=== PATIENT | female | born 1955 | race Caucasian/White ===

== ENCOUNTER → 2016-08-09 | Outpatient (CLI) | payer OTHER | LOC: RAD 15:30 | PROVIDERS: ATTEND Internal Medicine | DX: J44.9 Chronic obstructive pulmonary disease, unspecified (principal); R05 Cough | CPT/HCPCS: 71250 ==

== ENCOUNTER → 2017-01-11 | Outpatient (CLI) | payer OTHER ==
--- NOTE | 2017-01-11 15:37 | WOMENS IMAGING REPORT ---
EXAM DESCRIPTION: BILAT SCREENING MAMMO W/CAD COMPLETED DATE/TIME: 01/11/2017 10:12 am REASON FOR STUDY: ROUTINE SCREENING'; Z12.31 Z12.31 ENCNTR SCREEN MAMMOGRAM FOR MALIGNANT NEOPLASM OF JOSH COMPARISON: None. TECHNIQUE: Standard craniocaudal and mediolateral oblique views of each breast recorded using CTMGa l acquisition. LIMITATIONS: None. FINDINGS: RIGHT BREAST MASSES: No suspicious masses. CALCIFICATIONS: No new or suspicious calcifications. ARCHITECTURAL DISTORTION: None. DEVELOPING DENSITY: None. ASYMMETRY: None noted. OTHER: No other significant findings. LEFT BREAST MASSES: No suspicious masses. CALCIFICATIONS: No new or suspicious calcifications. ARCHITECTURAL DISTORTION: None. DEVELOPING DENSITY: None. ASYMMETRY: Medial asymmetry in the left breast on the CC on the views 3.9 cm from the nipple OTHER: No other significant findings. Read with the assistance of CAD. .[facility] - R2 Cenova Version 1.3 .[facility] - R2 Cenova Version 1.3 .[facility] Imaging - R2 Cenova Version 2.4 .[facility] - R2 Cenova Version 2.4 .[facility] - R2 Industrial Relations Representative Version 9.2 IMPRESSION: Left breast asymmetry BREAST DENSITY: b. There are scattered areas of fibroglandular density. BIRAD: 0 Incomplete: Needs Additional Imaging Evaluation and/or prior Mammograms for Comparison. RECOMMENDATION: RECOMMENDED FOLLOW-UP: Spot compression with ultrasound if indicated. The patient will be contacted for additional imaging. COMMENT: The patient has been notified of the results by letter per SA requirements. Additional no tification policies are in place for contacting patient with suspicious or incomplete findings. Quality ID #[id number]: The [employer] recommends an annual screening mammogram for women aged 40 years or over. This facility utilizes a reminder system to ensure that all patients receive reminder letters, and/or direct phone calls for appointments. This includes reminders for routine scr eening mammograms, diagnostic mammograms, or other Breast Imaging Interventions when appropriate. Th is patient will be placed in the appropriate reminder system. The [employer] (ACR) has developed recommendations for screening MRI of the breast s in certain patient populations, to be used in conjunction with mammography. Breast MRI surveillanc e may be appropriate for women with more than 20% lifetime risk of developing breast cancer as deter mined by genetic testing, significant family history of the disease, or history of mantle radiation f or Hodgkins Disease. ACR Practice Guidelines 2008. TECHNICAL DOCUMENTATION: FINDING NUMBER: (1) ASSESSMENT: (1) JOB ID: [id number] [employer]- All Rights Reserved
== END ==
LOC: WI 09:12
PROVIDERS: ATTEND Internal Medicine
DX: Z12.31 Encounter for screening mammogram for malignant neoplasm of breast (principal)
CPT/HCPCS: 77067; G0202

== ENCOUNTER 2017-01-17 16:22 | Inpatient (IN) | payer OTHER ==
[~2017-01-17 16:22] MED LIST: METOPROLOL TARTRATE 25 MG TABLET PO ONE
[2017-01-17] MEDS ORDERED: CEFEPIME 2 GM/D5W RTU 2 GM/50 ML RTUPB IV SCH (18:00)
[2017-01-17 18:45] LABS: ABSOLUTE LYMPHOCYTES (AUTO) 0.8 10^3/uL (0.5-4.7); ABSOLUTE MONOCYTES (AUTO) 1.1 10^3/uL (0.1-1.4); ABSOLUTE NEUT (AUTO) 7.1 10^3/uL (1.7-8.2); BASOPHILS % (AUTO) 0.3 % (0-2); EOSINOPHILS % (AUTO) 0.1 % (0-6); HEMATOCRIT 41.3 % (36.0-47.0); HEMOGLOBIN 13.9 g/dL (12.0-15.5); HGB HCT DIFFERENCE 0.4; LYMPHOCYTES % (AUTO) 8.8 % (13-45); MEAN CORPUSCULAR HGB CONC 33.5 g/dL (32.0-36.0); MEAN CORPUSCULAR VOLUME 92 fl (80-97); MONOCYTES % (AUTO) 12.4 % (3-13); RED BLOOD COUNT 4.47 10^6/uL (3.72-5.28); RED CELL DISTRIBUTION WIDTH 13.4 % (11.5-14.0); SEGMENTED NEUTROPHILS % (AUTO) 78.4 % (42-78)
[2017-01-17] MEDS ORDERED: ENOXAPARIN SODIUM INJ 40 MG/0.4 ML DISP.SYRIN SUBCUT ONE (19:00)
[2017-01-17] MEDS ORDERED: AZTREONAM 1 GM in DEXTROSE 5%-WATER 50 ML IV ONE ×2 (19:00→21:00)
[2017-01-17 19:03] LABS: ALANINE AMINOTRANSFERASE 25 U/L (9-52); ALBUMIN 4.2 g/dL (3.5-5.0); ALKALINE PHOSPHATASE 114 U/L (38-126); ASPARTATE AMINO TRANSFERASE 23 U/L (14-36); BILIRUBIN,DIRECT 0.3 mg/dL (0.0-0.4); BILIRUBIN,TOTAL 0.7 mg/dL (0.2-1.3); BLOOD UREA NITROGEN 8 mg/dL (7-20); CALCIUM 9.7 mg/dL (8.4-10.2); CREATINE KINASE 132 U/L (30-135); CREATININE RESULT 0.85 mg/dL (0.52-1.25); GLUCOSE 195 mg/dL (75-110); POTASSIUM 3.3 mmol/L (3.6-5.0); TOTAL PROTEIN 8.5 g/dL (6.3-8.2)
[2017-01-17 19:11] LABS: ANION GAP 18 (5-19); CARBON DIOXIDE 24 mmol/L (22-30); CHLORIDE 97 mmol/L (98-107); SODIUM 139.4 mmol/L (137-145)
[2017-01-17 19:15] LABS: CREATINE KINASE MB 1.04 ng/mL (<4.55)
[2017-01-17 19:17] LABS: TROPONIN I < 0.012 ng/mL
[2017-01-17] MEDS: IPRATROPIUM/ALBUTEROL 0.5-2.5 MG/3 ML AMPUL NEB SCH (20:49)
--- NOTE | 2017-01-17 21:29 | RADIOLOGY REPORT (SQ) ---
EXAM DESCRIPTION: CT CHEST WITHOUT COMPLETED DATE/TIME: 01/17/2017 8:37 pm REASON FOR STUDY: PNEUMONIA,RESP FAILURE, H/O CAD COMPARISON: 08/09/2016 TECHNIQUE: CT scan performed of the chest without intravenous contrast. Images reviewed with lung, soft tissue and bone windows. Reconstructed coronal and sagittal MPR images reviewed. All images st ored on PACS. All CT scanners at this facility use dose modulation, iterative reconstruction, and/or weight based d osing when appropriate to reduce radiation dose to as low as reasonably achievable (ALARA). [facility]: Dose Right [facility]: CareDose [facility]: Dose Right [facility]: Teradose 4D [facility]: [employer] RADIATION DOSE: 14.61 mGy. LIMITATIONS: No technical limitations. FINDINGS: LUNGS AND PLEURA: Scattered reticulonodular/ tree in bud opacities are present in both charles gs, upper lobe predominance. No consolidation. No pneumothorax. No pleural effusions, calcificati ons. HILAR AND MEDIASTINAL STRUCTURES: No identified masses or abnormal nodes. No obvious aneurysm. HEART AND VASCULAR STRUCTURES: No aneurysm. No pericardial effusion. UPPER ABDOMEN: Similar ventral hernia containing a portion of the liver. Similar left adrenal nodule . Limited exam. THYROID AND OTHER SOFT TISSUES: No masses. No adenopathy. BONES: No acute finding. HARDWARE: None in the chest. OTHER: No other significant findings. IMPRESSION: Scattered reticulonodular/ tree in bud opacities are present in both lungs, upper lobe p redominance, most suggestive of small airways disease. No consolidation. TECHNICAL DOCUMENTATION: JOB ID: [id number] Quality ID # [id number]: Final reports with documentation of one or more dose reduction techniques (e.g., Au tomated exposure control, adjustment of the mA and/or kV according to patient size, use of iterative reconstruction technique) 2010 [employer]- All Rights Reserved
[2017-01-17] MEDS: HYDROCODONE/ACETAMINOPHEN 10-325 MG TABLET PO SCH (21:46)
[2017-01-17 22:14] LABS: ARTERIAL BLOOD BASE EXCESS 2.1 mmol/L; ARTERIAL BLOOD O2 SATURATION 91.7 % (94-98)
[2017-01-17] MEDS ORDERED: (PENDING PHARMACY ID) (Epinephrine [Epipen 2-Pak] 0.3 MG) IM PRN (22:18)
[2017-01-17] MEDS ORDERED: ALBUTEROL SULFATE HFA (90 MCG/PUFF) 8 GM MDI (1 MDI/ER DISP) IH PRN (22:18)
[2017-01-17] MEDS ORDERED: NITROGLYCERIN 0.4 MG/TAB 25 TAB/BOTTLE SL PRN (22:18)
[2017-01-17] MEDS: LEVOFLOXACIN 750 MG/D5W RTU 750 MG/150 ML RTUPB IV SCH (22:50)
[2017-01-17 23:28] LABS: APPEARANCE,URINE CLOUDY; BILIRUBIN,URINE NEGATIVE (NEGATIVE); GLUCOSE, URINE NEGATIVE (NEGATIVE); KETONES,URINE NEGATIVE (NEGATIVE); LEUKOCYTE ESTERASE,URINE MODERATE (NEGATIVE); NITRITE,URINE NEGATIVE (NEGATIVE); PROTEIN,URINE >=500 mg/dL (NEGATIVE); URINE SPECIFIC GRAVITY 1.026; UROBILINOGEN,URINE NEGATIVE mg/dL (<2.0)
[2017-01-18] MEDS ORDERED: GABAPENTIN 300 MG CAPSULE PO ONE (00:05)
[2017-01-18] MEDS ORDERED: METOPROLOL TARTRATE 25 MG TABLET PO ONE (00:05)
[2017-01-18] MEDS ORDERED: ENOXAPARIN SODIUM INJ 40 MG/0.4 ML DISP.SYRIN SUBCUT ONE (00:05)
[2017-01-18] MEDS ORDERED: AMLODIPINE BESYLATE 5 MG TABLET PO ONE (00:05)
[2017-01-18] MEDS: POTASSIUM CHLORIDE 10 MEQ TABLET.SA PO SCH ×2 (00:15→04:05)
[2017-01-18] MEDS: IPRATROPIUM/ALBUTEROL 0.5-2.5 MG/3 ML AMPUL NEB SCH ×4 (02:22→19:55)
[2017-01-18 02:33] LABS: CREATINE KINASE MB 1.96 ng/mL (<4.55); TROPONIN I 0.021 ng/mL
[2017-01-18] MEDS: HYDROCODONE/ACETAMINOPHEN 10-325 MG TABLET PO SCH ×4 (02:33→22:44)
[2017-01-18] MEDS: LANSOPRAZOLE 30 MG TAB.RAP.DR PO SCH (05:37)
[2017-01-18] MEDS: AZTREONAM 1 GM in DEXTROSE 5%-WATER 50 ML IV SCH ×3 (05:37→22:45)
[2017-01-18] MEDS ORDERED: ALBUTEROL SULFATE HFA (90 MCG/PUFF) 200 PUFF/8.5 GM MDI IH PRN (07:46)
[2017-01-18 07:48] LABS: ABSOLUTE LYMPHOCYTES (AUTO) 1.5 10^3/uL (0.5-4.7); ABSOLUTE MONOCYTES (AUTO) 1.2 10^3/uL (0.1-1.4); ABSOLUTE NEUT (AUTO) 4.5 10^3/uL (1.7-8.2); BASOPHILS % (AUTO) 0.3 % (0-2); EOSINOPHILS % (AUTO) 0.3 % (0-6); HEMATOCRIT 37.3 % (36.0-47.0); HEMOGLOBIN 12.3 g/dL (12.0-15.5); HGB HCT DIFFERENCE -0.4; LYMPHOCYTES % (AUTO) 20.4 % (13-45); MEAN CORPUSCULAR HEMOGLOBIN 30.8 pg (27.0-33.4); MEAN CORPUSCULAR HGB CONC 32.9 g/dL (32.0-36.0); MEAN CORPUSCULAR VOLUME 93 fl (80-97); MONOCYTES % (AUTO) 17.2 % (3-13); RED BLOOD COUNT 3.99 10^6/uL (3.72-5.28); RED CELL DISTRIBUTION WIDTH 13.2 % (11.5-14.0); SEGMENTED NEUTROPHILS % (AUTO) 61.8 % (42-78); WHITE BLOOD COUNT 7.2 10^3/uL (4.0-10.5)
[2017-01-18 07:59] LABS: ANION GAP 12 (5-19); BLOOD UREA NITROGEN 14 mg/dL (7-20); CARBON DIOXIDE 26 mmol/L (22-30); CHLORIDE 99 mmol/L (98-107); GLUCOSE 100 mg/dL (75-110); POTASSIUM 4.1 mmol/L (3.6-5.0); SODIUM 136.9 mmol/L (137-145)
[2017-01-18] MEDS ORDERED: HYDROCODONE/ACETAMINOPHEN 10-325 MG TABLET PO SCH (10:00)
[2017-01-18] MEDS: FLUOXETINE HCL 20 MG CAPSULE PO SCH (10:18)
[2017-01-18] MEDS: VALSARTAN 160 MG TABLET PO SCH (10:19)
[2017-01-18] MEDS: METOPROLOL TARTRATE 25 MG TABLET PO SCH ×2 (10:20→22:45)
[2017-01-18] MEDS: ASPIRIN 81 MG TABLET, CHEWABLE PO SCH (10:20)
[2017-01-18] MEDS: ENOXAPARIN SODIUM INJ 40 MG/0.4 ML DISP.SYRIN SUBCUT SCH (10:46)
[2017-01-18] MEDS: BUDESONIDE/FORMOTEROL 160-4.5 MCG 60 PUFF/6 GM MDI IH SCH ×2 (10:47→22:48)
[2017-01-18 11:10] LABS: CREATINE KINASE MB 2.94 ng/mL (<4.55); TROPONIN I 0.014 ng/mL
--- NOTE | 2017-01-18 12:41 | EKG REPORT ---
SEVERITY:- NORMAL ECG - SINUS RHYTHM : Confirmed by: Tanika Waller MD 18-Jan-2017 12:40:55
--- NOTE | 2017-01-18 18:24 | PDOC H&P ---
History of Present Illness Admission Date/PCP: 01/17/17 16:44 EMILIANO RIVERA MD History of Present Illness: MATILDE BENNETT is a 61 year old female, she came to the office because of cough, shortness of breath, wheezing, she was seen in the 0ffice about a week ago for the same problems, she was treated with antibiotic and prednisone ,she came to the office today for evaluation of cough shortness of breath and wheezing. She was admitted directly from the office into the hospital for evaluation and management of her symptoms. The CT chest without contrast was done, It Demonstrated scattered reticulonodular /tree-in-bud opacities in both upper lobes. Past Medical History Cardiac Medical History: Reports: Coronary Artery Disease, Myocardial Infarction - 2000, 2013, Hyperlipidema, Hypertension Pulmonary Medical History: Reports: Chronic Obstructive Pulmonary Disease (COPD ) - No home O2 GI Medical History: Reports: Gastroesophageal Reflux Disease Psychiatric Medical History: Reports: Depression Past Surgical History Past Surgical History: Reports: Cardiac Catheterization - X2, Section - x3, Tubal Ligation Social History Smoking Status: Current Every Day Smoker Cigarettes Packs Per Day: 0.5 Number of Years Smokin Last Time Smoked: 2 days ago Frequency of Alcohol Use: None Hx Recreational Drug Use: No Hx Prescription Drug Abuse: No Family History Family History: Reviewed & Not Pertinent Parental Family History Reviewed: Yes Children Family History Reviewed: Yes Sibling(s) Family History Reviewed.: Yes Medication/Allergy Home Medications: Albuterol Sulfate [Proair HFA] 2 puff IH Q4HP PRN 01/17/17 Amlodipine Besylate [Norvasc 5 mg Tablet] 5 mg PO QHS 01/17/17 Aspirin [Aspirin 81 mg Chewable Tablet] 81 mg PO DAILY 01/17/17 Epinephrine [Epipen 2-Les] 0.3 mg IM ASDIR PRN 01/17/17 Ergocalciferol (Vitamin D2) [Drisdol 50,000 Unit (1.25MG) Capsule] 50,000 unit PO DUONG@1000 01/17/17 Fluoxetine HCl [Prozac 20 mg Capsule] 60 mg PO DAILY 01/17/17 Gabapentin [Neurontin 300 mg Capsule] 300 mg PO QHS 01/17/17 Hydrocodone Bit/Acetaminophen [Hydrocodon-Acetaminophn 10-325] 1 each PO Q6HP PRN 01/17/17 Metoprolol Tartrate [Lopressor 25 mg Tablet] 25 mg PO Q12 01/17/17 Nitroglycerin [Nitrostat 0.4 mg (1/150 Gr) Tabs 25/Bottle] 1 tab SL Q5MP PRN Pantoprazole Sodium [Protonix] 40 mg PO DAILY 01/17/17 Pravastatin Sodium [Pravachol] 80 mg PO DAILY 01/17/17 Valsartan [Diovan 160 mg Tablet] 160 mg PO DAILY 01/17/17 Allergies/Adverse Reactions: Cephalosporins Allergy (Verified 01/17/17 21:52) Penicillins Allergy (Verified 01/17/17 21:52) Egmmavo-Jgw-Myx Reductase Inhibitor Allergy (Verified 01/17/17 21:52) sulfamethoxazole [From ] Allergy (Verified 01/17/17 21:52) Tetanus Vaccines and Toxoid [Tetanus] Allergy (Verified 01/17/17 21:52) trimethoprim [From ] Allergy (Verified 01/17/17 21:52) Review of Systems Constitutional: PRESENT: fever(s) Eyes: ABSENT: visual disturbances Ears: ABSENT: hearing changes Cardiovascular: PRESENT: chest pain Respiratory: PRESENT: cough, dyspnea, sputum Gastrointestinal: ABSENT: abdominal pain, constipation, diarrhea, hematemesis, hematochezia, nausea, vomiting Genitourinary: ABSENT: dysuria, hematuria Musculoskeletal: ABSENT: joint swelling Integumentary: ABSENT: rash, wounds Neurological: ABSENT: abnormal gait, abnormal speech, confusion, dizziness, focal weakness, syncope Psychiatric: ABSENT: anxiety, depression, homidical ideation, suicidal ideation Endocrine: ABSENT: cold intolerance, heat intolerance, menstrual abnormalities, polydipsia, polyuria Hematologic/Lymphatic: ABSENT: easy bleeding, easy bruising, lymphadenopathy Physical Exam Vital Signs: Temp Pulse Resp BP Pulse Ox 97.9 F 68 20 115/63 95 01/18/17 08:32 01/18/17 14:00 01/18/17 13:49 01/18/17 08:32 01/18/17 13:49 Intake & Output 01/17/17 01/18/17 01/19/17 06:59 06:59 06:59 Intake Total 610 200 Output Total 100 220 Balance 510 -20 Weight 89.4 kg 89.4 kg General appearance: PRESENT: severe distress Eye exam: PRESENT: PERRLA Mouth exam: PRESENT: moist Neck exam: PRESENT: full ROM Respiratory exam: PRESENT: rhonchi, wheezes Cardiovascular exam: PRESENT: RRR, +S1, +S2 Vascular exam: PRESENT: normal capillary refill GI/Abdominal exam: PRESENT: diminished bowel sounds, normal bowel sounds, soft Neurological exam: PRESENT: alert, CN II-XII grossly intact Psychiatric exam: PRESENT: appropriate affect, normal mood Skin exam: PRESENT: dry, intact, warm Results Laboratory Results: 01/18/17 07:27 01/18/17 07:27 01/17/17 01/17/17 01/17/17 18:20 18:20 21:55 WBC 9.0 RBC 4.47 Hgb 13.9 Hct 41.3 MCV 92 MCH 31.0 MCHC 33.5 RDW 13.4 Plt Count 304 Seg Neutrophils % 78.4 H Lymphocytes % 8.8 L Monocytes % 12.4 Eosinophils % 0.1 Basophils % 0.3 Absolute Neutrophils 7.1 Absolute Lymphocytes 0.8 Absolute Monocytes 1.1 Absolute Eosinophils 0.0 Absolute Basophils 0.0 Carbonic Acid 1.12 HCO3/H2CO3 Ratio 23:1 ABG pH 7.46 H ABG pCO2 37.1 ABG pO2 58.0 L ABG HCO3 25.8 ABG O2 Saturation 91.7 L ABG Base Excess 2.1 FiO2 ROOM AIR Sodium 139.4 Potassium 3.3 L Chloride 97 L Carbon Dioxide 24 Anion Gap 18 BUN 8 Creatinine 0.85 Est GFR ( Amer) > 60 Est GFR (Non-Af Amer) > 60 Glucose 195 H Calcium 9.7 Total Bilirubin 0.7 AST 23 ALT 25 Alkaline Phosphatase 114 Total Protein 8.5 H Albumin 4.2 Urine Color Urine Appearance Urine pH Ur Specific [place] Urine Protein Urine Glucose (UA) Urine Ketones Urine Blood Urine Nitrite Ur Leukocyte Esterase Urine WBC (Auto) Urine RBC (Auto) 01/17/17 01/18/17 01/18/17 22:55 07:27 07:27 WBC 7.2 RBC 3.99 Hgb 12.3 Hct 37.3 MCV 93 MCH 30.8 MCHC 32.9 RDW 13.2 Plt Count 283 Seg Neutrophils % 61.8 Lymphocytes % 20.4 Monocytes % 17.2 H Eosinophils % 0.3 Basophils % 0.3 Absolute Neutrophils 4.5 Absolute Lymphocytes 1.5 Absolute Monocytes 1.2 Absolute Eosinophils 0.0 Absolute Basophils 0.0 Carbonic Acid HCO3/H2CO3 Ratio ABG pH ABG pCO2 ABG pO2 ABG HCO3 ABG O2 Saturation ABG Base Excess FiO2 Sodium 136.9 L Potassium 4.1 Chloride 99 Carbon Dioxide 26 Anion Gap 12 BUN 14 Creatinine 1.00 Est GFR ( Amer) > 60 Est GFR (Non-Af Amer) 56 L Glucose 100 Calcium 9.0 Total Bilirubin AST ALT Alkaline Phosphatase Total Protein Albumin Urine Color DARK YELLOW Urine Appearance CLOUDY Urine pH 5.0 Ur Specific [place] 1.026 Urine Protein >=500 H Urine Glucose (UA) NEGATIVE Urine Ketones NEGATIVE Urine Blood SMALL H Urine Nitrite NEGATIVE Ur Leukocyte Esterase MODERATE H Urine WBC (Auto) >182 Urine RBC (Auto) 13 01/17/17 01/17/17 01/18/17 18:20 18:20 01:59 Creatine Kinase 132 281 H CK-MB (CK-2) 1.04 Troponin I < 0.012 01/18/17 01/18/17 01/18/17 01:59 10:01 10:01 Creatine Kinase 328 H CK-MB (CK-2) 1.96 2.94 Troponin I 0.021 0.014 Impressions: Chest CT 01/17/17 00:00 IMPRESSION: Scattered reticulonodular/ tree in bud opacities are present in both lungs, upper lobe predominance, most suggestive of small airways disease. No consolidation. Assessment & Plan - Diagnosis (1) Pneumonia Qualifiers: Pneumonia type: due to unspecified organism Laterality: bilateral Lung location: upper lobe of lung Qualified Code(s): J18.9 - Pneumonia, unspecified organism Is this a current diagnosis for this admission?: Yes (2) Chronic obstructive pulmonary disease Qualifiers: COPD type: unspecified COPD Qualified Code(s): J44.9 - Chronic obstructive pulmonary disease, unspecified Is this a current diagnosis for this admission?: Yes (3) Coronary artery disease Qualifiers: Coronary Disease-Associated Artery/Lesion type: [place] artery [place] vs. transplanted heart: [place] heart Associated angina: without angina Qualified Code(s): I25.10 - Atherosclerotic heart disease of [place] coronary artery without angina pectoris Is this a current diagnosis for this admission?: Yes (4) Failure of outpatient treatment Is this a current diagnosis for this admission?: Yes
[2017-01-18 18:52] LABS: TROPONIN I < 0.012 ng/mL
--- NOTE | 2017-01-18 19:50 | PDOC PROGRESS REPORT ---
Subjective Progress Note for:: 01/18/17 Subjective:: She was admitted yesterday for the management of pneumonia, she is coughing less today Physical Exam Vital Signs: Temp Pulse Resp BP Pulse Ox 97.9 F 60 21 H 123/63 89 L 01/18/17 17:18 01/18/17 17:18 01/18/17 17:18 01/18/17 17:18 01/18/17 17:18 Intake & Output 01/17/17 01/18/17 01/19/17 06:59 06:59 06:59 Intake Total 610 1040 Output Total 100 320 Balance 510 720 Weight 89.4 kg 89.4 kg General appearance: PRESENT: no acute distress Eye exam: PRESENT: PERRLA Respiratory exam: PRESENT: crackles Cardiovascular exam: PRESENT: +S1, +S2 GI/Abdominal exam: PRESENT: soft Neurological exam: PRESENT: alert, CN II-XII grossly intact Results Laboratory Results: 01/18/17 07:27 01/18/17 07:27 01/17/17 01/17/17 01/18/17 21:55 22:55 07:27 WBC 7.2 RBC 3.99 Hgb 12.3 Hct 37.3 MCV 93 MCH 30.8 MCHC 32.9 RDW 13.2 Plt Count 283 Seg Neutrophils % 61.8 Lymphocytes % 20.4 Monocytes % 17.2 H Eosinophils % 0.3 Basophils % 0.3 Absolute Neutrophils 4.5 Absolute Lymphocytes 1.5 Absolute Monocytes 1.2 Absolute Eosinophils 0.0 Absolute Basophils 0.0 Carbonic Acid 1.12 HCO3/H2CO3 Ratio 23:1 ABG pH 7.46 H ABG pCO2 37.1 ABG pO2 58.0 L ABG HCO3 25.8 ABG O2 Saturation 91.7 L ABG Base Excess 2.1 FiO2 ROOM AIR Sodium Potassium Chloride Carbon Dioxide Anion Gap BUN Creatinine Est GFR ( Amer) Est GFR (Non-Af Amer) Glucose Calcium Urine Color DARK YELLOW Urine Appearance CLOUDY Urine pH 5.0 Ur Specific [place] 1.026 Urine Protein >=500 H Urine Glucose (UA) NEGATIVE Urine Ketones NEGATIVE Urine Blood SMALL H Urine Nitrite NEGATIVE Ur Leukocyte Esterase MODERATE H Urine WBC (Auto) >182 Urine RBC (Auto) 13 01/18/17 07:27 WBC RBC Hgb Hct MCV MCH MCHC RDW Plt Count Seg Neutrophils % Lymphocytes % Monocytes % Eosinophils % Basophils % Absolute Neutrophils Absolute Lymphocytes Absolute Monocytes Absolute Eosinophils Absolute Basophils Carbonic Acid HCO3/H2CO3 Ratio ABG pH ABG pCO2 ABG pO2 ABG HCO3 ABG O2 Saturation ABG Base Excess FiO2 Sodium 136.9 L Potassium 4.1 Chloride 99 Carbon Dioxide 26 Anion Gap 12 BUN 14 Creatinine 1.00 Est GFR ( Amer) > 60 Est GFR (Non-Af Amer) 56 L Glucose 100 Calcium 9.0 Urine Color Urine Appearance Urine pH Ur Specific [place] Urine Protein Urine Glucose (UA) Urine Ketones Urine Blood Urine Nitrite Ur Leukocyte Esterase Urine WBC (Auto) Urine RBC (Auto) 01/17/17 01/17/17 01/18/17 18:20 18:20 01:59 Creatine Kinase 132 281 H CK-MB (CK-2) 1.04 Troponin I < 0.012 01/18/17 01/18/17 01/18/17 01:59 10:01 10:01 Creatine Kinase 328 H CK-MB (CK-2) 1.96 2.94 Troponin I 0.021 0.014 01/18/17 01/18/17 17:46 17:46 Creatine Kinase 286 H CK-MB (CK-2) 3.20 Troponin I < 0.012 Impressions: Chest CT 01/17/17 00:00 IMPRESSION: Scattered reticulonodular/ tree in bud opacities are present in both lungs, upper lobe predominance, most suggestive of small airways disease. No consolidation. Assessment & Plan - Diagnosis (1) Pneumonia Qualifiers: Pneumonia type: due to unspecified organism Laterality: bilateral Lung location: upper lobe of lung Qualified Code(s): J18.9 - Pneumonia, unspecified organism Is this a current diagnosis for this admission?: Yes (2) Chronic obstructive pulmonary disease Qualifiers: COPD type: unspecified COPD Qualified Code(s): J44.9 - Chronic obstructive pulmonary disease, unspecified Is this a current diagnosis for this admission?: Yes (3) Coronary artery disease Qualifiers: Coronary Disease-Associated Artery/Lesion type: [place] artery [place] vs. transplanted heart: [place] heart Associated angina: without angina Qualified Code(s): I25.10 - Atherosclerotic heart disease of [place] coronary artery without angina pectoris Is this a current diagnosis for this admission?: Yes (4) Failure of outpatient treatment Is this a current diagnosis for this admission?: Yes - Plan Summary Plan Summary: continue IV antibiotic
[2017-01-18] MEDS: GABAPENTIN 300 MG CAPSULE PO SCH (22:43)
[2017-01-18] MEDS: AMLODIPINE BESYLATE 5 MG TABLET PO SCH (22:44)
[2017-01-18] MEDS: ATORVASTATIN CALCIUM 20 MG TABLET PO SCH (22:46)
[2017-01-18] MEDS: LEVOFLOXACIN 750 MG/D5W RTU 750 MG/150 ML RTUPB IV SCH (23:35)
[2017-01-19] MEDS: IPRATROPIUM/ALBUTEROL 0.5-2.5 MG/3 ML AMPUL NEB SCH ×4 (02:12→20:32)
[2017-01-19] MEDS: HYDROCODONE/ACETAMINOPHEN 10-325 MG TABLET PO SCH ×4 (02:25→21:02)
[2017-01-19] MEDS: LANSOPRAZOLE 30 MG TAB.RAP.DR PO SCH (05:44)
[2017-01-19] MEDS: AZTREONAM 1 GM in DEXTROSE 5%-WATER 50 ML IV SCH ×3 (05:47→22:35)
[2017-01-19] MEDS: FLUOXETINE HCL 20 MG CAPSULE PO SCH (11:11)
[2017-01-19] MEDS: ASPIRIN 81 MG TABLET, CHEWABLE PO SCH (11:12)
[2017-01-19] MEDS: METOPROLOL TARTRATE 25 MG TABLET PO SCH ×2 (11:12→21:02)
[2017-01-19] MEDS: ENOXAPARIN SODIUM INJ 40 MG/0.4 ML DISP.SYRIN SUBCUT SCH (11:13)
[2017-01-19] MEDS: VALSARTAN 160 MG TABLET PO SCH (11:13)
[2017-01-19] MEDS: BUDESONIDE/FORMOTEROL 160-4.5 MCG 60 PUFF/6 GM MDI IH SCH ×2 (11:14→22:35)
--- NOTE | 2017-01-19 17:04 | PDOC PROGRESS REPORT ---
Subjective Progress Note for:: 01/19/17 Subjective:: she was seen by the bedside ,the blood culture is growing gram positive cocci in clusters Physical Exam Vital Signs: Temp Pulse Resp BP Pulse Ox 97.7 F 56 L 21 H 118/54 L 91 L 01/19/17 11:42 01/19/17 14:00 01/19/17 13:57 01/19/17 11:42 01/19/17 13:57 Intake & Output 01/18/17 01/19/17 01/20/17 06:59 06:59 06:59 Intake Total 610 1369 Output Total 100 720 Balance 510 649 Weight 89.4 kg 89.4 kg General appearance: PRESENT: mild distress Neck exam: PRESENT: full ROM Respiratory exam: PRESENT: rhonchi Cardiovascular exam: PRESENT: RRR, +S1, +S2 GI/Abdominal exam: PRESENT: normal bowel sounds, soft Rectal exam: PRESENT: deferred Neurological exam: PRESENT: alert Psychiatric exam: PRESENT: appropriate affect, normal mood Skin exam: PRESENT: dry, intact, warm Results Laboratory Results: 01/18/17 07:27 01/18/17 07:27 01/17/17 20:50 Sputum Gram Stain - Final 01/17/17 20:50 Sputum Sputum Culture - Final NORMAL KRYSTEN 01/17/17 22:55 Clean Catch Midstream Urine Culture - Final Mixed Skin. Possible Pathogen 01/17/17 01/17/17 01/18/17 18:20 18:20 01:59 Creatine Kinase 132 281 H CK-MB (CK-2) 1.04 Troponin I < 0.012 01/18/17 01/18/17 01/18/17 01:59 10:01 10:01 Creatine Kinase 328 H CK-MB (CK-2) 1.96 2.94 Troponin I 0.021 0.014 01/18/17 01/18/17 17:46 17:46 Creatine Kinase 286 H CK-MB (CK-2) 3.20 Troponin I < 0.012 Impressions: Chest CT 01/17/17 00:00 IMPRESSION: Scattered reticulonodular/ tree in bud opacities are present in both lungs, upper lobe predominance, most suggestive of small airways disease. No consolidation. Assessment & Plan - Diagnosis (1) Pneumonia Qualifiers: Pneumonia type: due to unspecified organism Laterality: bilateral Lung location: upper lobe of lung Qualified Code(s): J18.9 - Pneumonia, unspecified organism Is this a current diagnosis for this admission?: Yes (2) Chronic obstructive pulmonary disease Qualifiers: COPD type: unspecified COPD Qualified Code(s): J44.9 - Chronic obstructive pulmonary disease, unspecified Is this a current diagnosis for this admission?: Yes (3) Coronary artery disease Qualifiers: Coronary Disease-Associated Artery/Lesion type: [place] artery [place] vs. transplanted heart: [place] heart Associated angina: without angina Qualified Code(s): I25.10 - Atherosclerotic heart disease of [place] coronary artery without angina pectoris Is this a current diagnosis for this admission?: Yes (4) Failure of outpatient treatment Is this a current diagnosis for this admission?: Yes - Plan Summary Plan Summary: continue treatment
[2017-01-19] MEDS: AMLODIPINE BESYLATE 5 MG TABLET PO SCH (21:01)
[2017-01-19] MEDS: LEVOFLOXACIN 750 MG/D5W RTU 750 MG/150 ML RTUPB IV SCH (21:02)
[2017-01-19] MEDS: GABAPENTIN 300 MG CAPSULE PO SCH (21:02)
[2017-01-19] MEDS: ATORVASTATIN CALCIUM 20 MG TABLET PO SCH (21:03)
[2017-01-20] MEDS: IPRATROPIUM/ALBUTEROL 0.5-2.5 MG/3 ML AMPUL NEB SCH ×4 (02:48→20:21)
[2017-01-20] MEDS: HYDROCODONE/ACETAMINOPHEN 10-325 MG TABLET PO SCH ×4 (03:01→21:03)
[2017-01-20] MEDS: LANSOPRAZOLE 30 MG TAB.RAP.DR PO SCH (05:18)
[2017-01-20] MEDS: AZTREONAM 1 GM in DEXTROSE 5%-WATER 50 ML IV SCH ×3 (05:19→21:03)
[2017-01-20] MEDS: ASPIRIN 81 MG TABLET, CHEWABLE PO SCH (11:55)
[2017-01-20] MEDS: METOPROLOL TARTRATE 25 MG TABLET PO SCH ×2 (11:55→21:03)
[2017-01-20] MEDS: FLUOXETINE HCL 20 MG CAPSULE PO SCH (11:55)
[2017-01-20] MEDS: ENOXAPARIN SODIUM INJ 40 MG/0.4 ML DISP.SYRIN SUBCUT SCH (11:56)
[2017-01-20] MEDS: VALSARTAN 160 MG TABLET PO SCH (11:56)
[2017-01-20] MEDS: BUDESONIDE/FORMOTEROL 160-4.5 MCG 60 PUFF/6 GM MDI IH SCH ×2 (11:57→21:03)
--- NOTE | 2017-01-20 18:50 | PDOC PROGRESS REPORT ---
Subjective Progress Note for:: 01/20/17 Subjective:: She has mild wheeze,she is started on low dose solumedrol, there is improvement in the wheezing. She said she had a chest pain after she received the IV Solu- Medrol, cardiac enzymes were drawn to rule out acute SD, the EKG did not show any ST segment deviation to suggest acute ischemia Physical Exam Vital Signs: Temp Pulse Resp BP Pulse Ox 98.5 F 61 20 116/59 L 91 L 01/20/17 16:10 01/20/17 16:10 01/20/17 16:10 01/20/17 16:10 01/20/17 16:10 Intake & Output 01/19/17 01/20/17 01/21/17 06:59 06:59 06:59 Intake Total 1369 680 711 Output Total 720 1120 Balance 649 -440 711 Weight 89.4 kg General appearance: PRESENT: no acute distress Eye exam: PRESENT: PERRLA Respiratory exam: PRESENT: clear to auscultation rafia Cardiovascular exam: PRESENT: +S1, +S2 GI/Abdominal exam: PRESENT: soft Neurological exam: PRESENT: alert, CN II-XII grossly intact Results Laboratory Results: 01/18/17 07:27 01/18/17 07:27 01/17/17 01/17/17 01/18/17 18:20 18:20 01:59 Creatine Kinase 132 281 H CK-MB (CK-2) 1.04 Troponin I < 0.012 01/18/17 01/18/17 01/18/17 01:59 10:01 10:01 Creatine Kinase 328 H CK-MB (CK-2) 1.96 2.94 Troponin I 0.021 0.014 01/18/17 01/18/17 17:46 17:46 Creatine Kinase 286 H CK-MB (CK-2) 3.20 Troponin I < 0.012 Impressions: Chest CT 01/17/17 00:00 IMPRESSION: Scattered reticulonodular/ tree in bud opacities are present in both lungs, upper lobe predominance, most suggestive of small airways disease. No consolidation. Assessment & Plan - Diagnosis (1) Pneumonia Qualifiers: Pneumonia type: due to unspecified organism Laterality: bilateral Lung location: upper lobe of lung Qualified Code(s): J18.9 - Pneumonia, unspecified organism Is this a current diagnosis for this admission?: Yes (2) Chronic obstructive pulmonary disease Qualifiers: COPD type: unspecified COPD Qualified Code(s): J44.9 - Chronic obstructive pulmonary disease, unspecified Is this a current diagnosis for this admission?: Yes (3) Coronary artery disease Qualifiers: Coronary Disease-Associated Artery/Lesion type: [place] artery [place] vs. transplanted heart: [place] heart Associated angina: without angina Qualified Code(s): I25.10 - Atherosclerotic heart disease of [place] coronary artery without angina pectoris Is this a current diagnosis for this admission?: Yes (4) Failure of outpatient treatment Is this a current diagnosis for this admission?: Yes
[2017-01-20] MEDS ORDERED: METHYLPREDNISOLONE INJ 40 MG/1 ML SDV IV ONE (19:15)
[2017-01-20] MEDS: METHYLPREDNISOLONE INJ 40 MG/1 ML SDV IV SCH (19:53)
[2017-01-20] MEDS: ATORVASTATIN CALCIUM 20 MG TABLET PO SCH (21:03)
[2017-01-20] MEDS: LEVOFLOXACIN 750 MG TABLET PO SCH (21:03)
[2017-01-20] MEDS: AMLODIPINE BESYLATE 5 MG TABLET PO SCH (21:03)
[2017-01-20] MEDS: GABAPENTIN 300 MG CAPSULE PO SCH (21:03)
[2017-01-21] MEDS: IPRATROPIUM/ALBUTEROL 0.5-2.5 MG/3 ML AMPUL NEB SCH ×4 (02:09→20:29)
[2017-01-21] MEDS: HYDROCODONE/ACETAMINOPHEN 10-325 MG TABLET PO SCH ×4 (03:17→22:23)
[2017-01-21] MEDS: METHYLPREDNISOLONE INJ 40 MG/1 ML SDV IV SCH ×3 (03:21→17:18)
[2017-01-21] MEDS: AZTREONAM 1 GM in DEXTROSE 5%-WATER 50 ML IV SCH ×3 (06:37→22:24)
[2017-01-21] MEDS: LANSOPRAZOLE 30 MG TAB.RAP.DR PO SCH (06:37)
[2017-01-21] MEDS: FLUOXETINE HCL 20 MG CAPSULE PO SCH (10:59)
[2017-01-21] MEDS: ASPIRIN 81 MG TABLET, CHEWABLE PO SCH (10:59)
[2017-01-21] MEDS: VALSARTAN 160 MG TABLET PO SCH (10:59)
[2017-01-21] MEDS: METOPROLOL TARTRATE 25 MG TABLET PO SCH ×2 (10:59→22:22)
[2017-01-21] MEDS: ENOXAPARIN SODIUM INJ 40 MG/0.4 ML DISP.SYRIN SUBCUT SCH (11:00)
[2017-01-21] MEDS: BUDESONIDE/FORMOTEROL 160-4.5 MCG 60 PUFF/6 GM MDI IH SCH ×2 (11:01→22:24)
[2017-01-21 19:24] LABS: CREATINE KINASE MB 1.63 ng/mL (<4.55)
[2017-01-21 19:29] LABS: TROPONIN I < 0.012 ng/mL
[2017-01-21] MEDS: AMLODIPINE BESYLATE 5 MG TABLET PO SCH (22:21)
[2017-01-21] MEDS: LEVOFLOXACIN 750 MG TABLET PO SCH (22:22)
[2017-01-21] MEDS: GABAPENTIN 300 MG CAPSULE PO SCH (22:22)
[2017-01-21] MEDS: ATORVASTATIN CALCIUM 20 MG TABLET PO SCH (22:32)
[2017-01-22] MEDS: METHYLPREDNISOLONE INJ 40 MG/1 ML SDV IV SCH ×2 (01:30→10:13)
[2017-01-22] MEDS: IPRATROPIUM/ALBUTEROL 0.5-2.5 MG/3 ML AMPUL NEB SCH ×2 (02:30→08:37)
[2017-01-22] MEDS: HYDROCODONE/ACETAMINOPHEN 10-325 MG TABLET PO SCH ×2 (02:43→10:05)
[2017-01-22] MEDS: AZTREONAM 1 GM in DEXTROSE 5%-WATER 50 ML IV SCH ×2 (06:38→13:05)
[2017-01-22] MEDS: LANSOPRAZOLE 30 MG TAB.RAP.DR PO SCH (06:38)
[2017-01-22] MEDS: BUDESONIDE/FORMOTEROL 160-4.5 MCG 60 PUFF/6 GM MDI IH SCH (10:04)
[2017-01-22] MEDS: METOPROLOL TARTRATE 25 MG TABLET PO SCH (10:06)
[2017-01-22] MEDS: ASPIRIN 81 MG TABLET, CHEWABLE PO SCH (10:06)
[2017-01-22] MEDS: FLUOXETINE HCL 20 MG CAPSULE PO SCH (10:06)
[2017-01-22] MEDS: VALSARTAN 160 MG TABLET PO SCH (10:07)
[2017-01-22] MEDS: ENOXAPARIN SODIUM INJ 40 MG/0.4 ML DISP.SYRIN SUBCUT SCH (10:07)
--- NOTE | 2017-01-22 12:03 | PDOC PROGRESS REPORT ---
Subjective Progress Note for:: 01/21/17 Subjective:: She has mild wheeze,she is started on low dose solumedrol, there is improvement in the wheezing. She said she had a chest pain after she received the IV Solu- Medrol, cardiac enzymes were drawn to rule out acute HI, the EKG did not show any ST segment deviation to suggest acute ischemia Physical Exam Vital Signs: Temp Pulse Resp BP Pulse Ox 97.9 F 77 18 146/103 H 95 01/22/17 08:35 01/22/17 08:42 01/22/17 08:42 01/22/17 08:35 01/22/17 08:42 Intake & Output 01/21/17 01/22/17 01/23/17 06:59 06:59 06:59 Intake Total 811 1269 Balance 811 1269 General appearance: PRESENT: mild distress Head exam: PRESENT: atraumatic, normocephalic Eye exam: PRESENT: PERRLA. ABSENT: scleral icterus Ear exam: PRESENT: normal external ear exam Mouth exam: PRESENT: moist, tongue midline Neck exam: PRESENT: full ROM Respiratory exam: PRESENT: wheezes Cardiovascular exam: PRESENT: RRR, +S1, +S2 Vascular exam: PRESENT: normal capillary refill GI/Abdominal exam: PRESENT: normal bowel sounds, soft Rectal exam: PRESENT: deferred Neurological exam: PRESENT: alert, CN II-XII grossly intact. ABSENT: motor sensory deficit Skin exam: PRESENT: dry, intact, warm Results Laboratory Results: 01/18/17 07:27 01/18/17 07:27 01/17/17 21:10 Blood Blood Culture - Final Staphylococcus Epidermidis 01/17/17 01/17/17 01/18/17 18:20 18:20 01:59 Creatine Kinase 132 281 H CK-MB (CK-2) 1.04 Troponin I < 0.012 01/18/17 01/18/17 01/18/17 01:59 10:01 10:01 Creatine Kinase 328 H CK-MB (CK-2) 1.96 2.94 Troponin I 0.021 0.014 01/18/17 01/18/17 01/21/17 17:46 17:46 18:32 Creatine Kinase 286 H 59 CK-MB (CK-2) 3.20 Troponin I < 0.012 06/23/17 18:32 Creatine Kinase CK-MB (CK-2) 1.63 Troponin I < 0.012 Impressions: Chest CT 01/17/17 00:00 IMPRESSION: Scattered reticulonodular/ tree in bud opacities are present in both lungs, upper lobe predominance, most suggestive of small airways disease. No consolidation. Assessment & Plan - Diagnosis (1) Pneumonia Qualifiers: Pneumonia type: due to unspecified organism Laterality: bilateral Lung location: upper lobe of lung Qualified Code(s): J18.9 - Pneumonia, unspecified organism Is this a current diagnosis for this admission?: Yes (2) Chronic obstructive pulmonary disease Qualifiers: COPD type: unspecified COPD Qualified Code(s): J44.9 - Chronic obstructive pulmonary disease, unspecified Is this a current diagnosis for this admission?: Yes (3) Coronary artery disease Qualifiers: Coronary Disease-Associated Artery/Lesion type: [place] artery [place] vs. transplanted heart: [place] heart Associated angina: without angina Qualified Code(s): I25.10 - Atherosclerotic heart disease of [place] coronary artery without angina pectoris Is this a current diagnosis for this admission?: Yes (4) Failure of outpatient treatment Is this a current diagnosis for this admission?: Yes
--- NOTE | 2017-01-22 12:09 | PDOC DISCHARGE SUMMARY ---
General - Admit/Disc Date/PCP Admission Date/Primary Care Provider: 01/17/17 16:44 EMILIANO RIVERA MD Discharge Date: 01/22/17 - Discharge Diagnosis (1) Pneumonia Is this a current diagnosis for this admission?: Yes (2) Chronic obstructive pulmonary disease Is this a current diagnosis for this admission?: Yes (3) Coronary artery disease Is this a current diagnosis for this admission?: Yes (4) Failure of outpatient treatment Is this a current diagnosis for this admission?: Yes - Additional Information Home Medications: Albuterol Sulfate [Proair HFA] 2 puff IH Q4HP PRN 01/17/17 Amlodipine Besylate [Norvasc 5 mg Tablet] 5 mg PO QHS 01/17/17 Aspirin [Aspirin 81 mg Chewable Tablet] 81 mg PO DAILY 01/17/17 Epinephrine [Epipen 2-Les] 0.3 mg IM ASDIR PRN 01/17/17 Ergocalciferol (Vitamin D2) [Drisdol 50,000 unit (1.25MG) Capsule] 50,000 unit PO DUONG@1000 01/17/17 Fluoxetine HCl [Prozac 20 mg Capsule] 60 mg PO DAILY 01/17/17 Gabapentin [Neurontin 300 mg Capsule] 300 mg PO QHS 01/17/17 Hydrocodone Bit/Acetaminophen [Hydrocodon-Acetaminophn 10-325] 1 each PO Q6HP PRN 01/17/17 Metoprolol Tartrate [Lopressor 25 mg Tablet] 25 mg PO Q12 01/17/17 Nitroglycerin [Nitrostat 0.4 mg (1/150 Gr) Tabs 25/Bottle] 1 tab SL Q5MP PRN Pantoprazole Sodium [Protonix] 40 mg PO DAILY 01/17/17 Pravastatin Sodium [Pravachol] 80 mg PO DAILY 01/17/17 Valsartan [Diovan 160 mg Tablet] 160 mg PO DAILY 01/17/17 Levofloxacin [Levaquin 750 mg Tablet] 750 mg PO QHS #10 tablet 01/22/17 History of Present Illness History of Present Illness: MATILDE BENNETT is a 61 year old female, she came to the office because of cough, shortness of breath, wheezing, she was seen in the [facility] about a week ago for the same problems, she was treated with antibiotic and prednisone ,she came to the office today for evaluation of cough shortness of breath and wheezing. She was admitted directly from the office into the hospital for evaluation and management of her symptoms. The CT chest without contrast was done, It Demonstrated scattered reticulonodular /tree-in-bud opacities in both upper lobes. Hospital Course Hospital Course: She was admitted for the management of pneumonia, she was treated with IV antibiotic, Levaquin and aztreonam. She has COPD, she developed wheezing episode in the hospital, this was treated with IV Solu-Medrol 40 mg IV every 8, she did not tolerate Solu-Medrol very well she stated that the Solu-Medrol induced chest pain and made her nervous, she refused subsequent doses of the steroid. She is improved otherwise, she still has some faint wheeze on auscultation of the lung but she will be discharged home to continue outpatient treatment Physical Exam Vital Signs: Temp Pulse Resp BP Pulse Ox 97.9 F 77 18 146/103 H 95 01/22/17 08:35 01/22/17 08:42 01/22/17 08:42 01/22/17 08:35 01/22/17 08:42 Intake & Output 01/21/17 01/22/17 01/23/17 06:59 06:59 06:59 Intake Total 811 1269 Balance 811 1269 General appearance: PRESENT: no acute distress, well-developed, well-nourished Head exam: PRESENT: atraumatic, normocephalic Eye exam: PRESENT: conjunctiva pink, EOMI, PERRLA. ABSENT: scleral icterus Ear exam: PRESENT: normal external ear exam Mouth exam: PRESENT: moist, tongue midline Neck exam: PRESENT: full ROM Respiratory exam: PRESENT: wheezes Cardiovascular exam: PRESENT: +S1, +S2 Vascular exam: PRESENT: normal capillary refill GI/Abdominal exam: PRESENT: normal bowel sounds, soft Rectal exam: PRESENT: deferred Neurological exam: PRESENT: alert, awake, oriented to person, oriented to place , oriented to time, oriented to situation, CN II-XII grossly intact Psychiatric exam: PRESENT: appropriate affect, normal mood. ABSENT: homicidal ideation, suicidal ideation Skin exam: PRESENT: dry, intact, warm Results Laboratory Results: 01/18/17 07:27 01/18/17 07:27 01/17/17 21:10 Blood Blood Culture - Final Staphylococcus Epidermidis 01/17/17 01/17/17 01/18/17 18:20 18:20 01:59 Creatine Kinase 132 281 H CK-MB (CK-2) 1.04 Troponin I < 0.012 01/18/17 01/18/17 01/18/17 01:59 10:01 10:01 Creatine Kinase 328 H CK-MB (CK-2) 1.96 2.94 Troponin I 0.021 0.014 01/18/17 01/18/17 01/21/17 17:46 17:46 18:32 Creatine Kinase 286 H 59 CK-MB (CK-2) 3.20 Troponin I < 0.012 01/21/17 18:32 Creatine Kinase CK-MB (CK-2) 1.63 Troponin I < 0.012 Impressions: Chest CT 01/17/17 00:00 IMPRESSION: Scattered reticulonodular/ tree in bud opacities are present in both lungs, upper lobe predominance, most suggestive of small airways disease. No consolidation.
[2017-01-22 12:28] VITALS: BP 166/68
--- NOTE | 2017-01-22 17:29 | EKG REPORT ---
SEVERITY:- NORMAL ECG - SINUS RHYTHM : Confirmed by: Samara Correa 22-Jan-2017 17:28:45
[2017-01-23] MEDS ORDERED: ERGOCALCIFEROL (VITAMIN D2) 50000 UNIT (1.25 MG) CAPSULE PO SCH (10:00)
== END 2017-01-22 14:00 | disposition home or self-care (01) | DRG 190 ==
LOC: ER 16:22 → EH 16:44 → 3S 19:07
PROVIDERS: ADMIT Internal Medicine; ATTEND Internal Medicine
PROC: 3E0F73Z Introduction of Anti-inflammatory into Respiratory Tract, Via Natural or Artificial Opening (ICD-10-PCS; principal; 2017-01-17)
DX: J44.0 Chronic obstructive pulmonary disease with (acute) lower respiratory infection (principal); J18.9 Pneumonia, unspecified organism; I25.10 Atherosclerotic heart disease of native coronary artery without angina pectoris; F32.9 Major depressive disorder, single episode, unspecified; K21.9 Gastro-esophageal reflux disease without esophagitis; B95.7 Other staphylococcus as the cause of diseases classified elsewhere; R09.02 Hypoxemia; E78.5 Hyperlipidemia, unspecified; I10 Essential (primary) hypertension; F17.210 Nicotine dependence, cigarettes, uncomplicated; I25.2 Old myocardial infarction; Z88.0 Allergy status to penicillin; Z88.2 Allergy status to sulfonamides; Z88.7 Allergy status to serum and vaccine; Z88.8 Allergy status to other drugs, medicaments and biological substances; Z79.51 Long term (current) use of inhaled steroids; Z79.52 Long term (current) use of systemic steroids; Z98.51 Tubal ligation status; Z79.899 Other long term (current) drug therapy
CPT/HCPCS: 36415; 36600; 71250; 80048; 80076; 81001; 82550; 82553; 82803; 84484; 85025; 87040; 87070; 87077; 87086; 87186; 87205; 93005; 93010; 94640; J1650; J1956; J2920; J3490; J7620

== ENCOUNTER → 2017-02-22 | Outpatient (CLI) | payer OTHER ==
--- NOTE | 2017-02-22 09:57 | WOMENS IMAGING REPORT ---
EXAM DESCRIPTION: LEFT DIAGNOSTIC MAMMO W/CAD; U/S BREAST UNILAT LIMITED COMPLETED DATE/TIME: 02/22/2017 8:21 am; 02/22/2017 9:08 am REASON FOR STUDY: R92.2, INCONCLUSIVE MAMMO; INCONCLUSIVE MAMMO, LEFT BREAST R92.2 INCONCLUSIVE CLAUDIA MOGRAM COMPARISON: 01/11/2017. TECHNIQUE: Additional images include a true lateral view and spot compression CC view. LIMITATIONS: None. FINDINGS: BREAST: left MASSES: No suspicious masses. CALCIFICATIONS: No new or suspicious calcifications. ARCHITECTURAL DISTORTION: None. DEVELOPING DENSITY: Small focal area of asymmetry has the appearance of parenchyma on additional view s. No discrete mass demonstrated. ASYMMETRY: None noted. OTHER: No other significant findings. BREAST ULTRASOUND: TECHNIQUE: Static and dynamic grayscale images acquired of the left breast in the specific areas of c linical/mammographic concern. Selected color Doppler images recorded. ELASTOGRAPHY PERFORMED: No. LIMITATIONS: None. FINDINGS: MASS: 2 mm cyst. No solid mass identified. Normal glandular tissue. ELASTOGRAPHY CHARACTERISTICS: Not applicable. OTHER: No other significant finding. IMPRESSION: Small focal area of asymmetry in the medial left breast has the appearance of breast par enchyma. No worrisome mammographic or sonographic findings. BREAST DENSITY: b. There are scattered areas of fibroglandular density. BIRAD: 2 Benign findings. RECOMMENDATION: RECOMMENDED FOLLOW UP: Birads 1 or 2: The patient should resume routine screening . SPECIFIC INTERVENTION/IMAGING/CONSULTATION RECOMMENDED:No additional intervention/ imaging/consultati on needed at this time. COMMUNICATION:The imaging findings were not discussed with the patient. Her referring provider has be en notified of the findings. COMMENT: The patient has been notified of the results by letter per SA requirements. Additional no tification policies are in place for contacting patient with suspicious or incomplete findings. Quality ID #[id number]: The [employer] recommends an annual screening mammogram for women aged 40 years or over. This facility utilizes a reminder system to ensure that all patients receive reminder letters, and/or direct phone calls for appointments. This includes reminders for routine scr eening mammograms, diagnostic mammograms, or other Breast Imaging Interventions when appropriate. Th is patient will be placed in the appropriate reminder system. The [employer] (ACR) has developed recommendations for screening MRI of the breast s in certain patient populations, to be used in conjunction with mammography. Breast MRI surveillanc e may be appropriate for women with more than 20% lifetime risk of developing breast cancer as deter mined by genetic testing, significant family history of the disease, or history of mantle radiation f or Hodgkins Disease. ACR Practice Guidelines 2008. TECHNICAL DOCUMENTATION: FINDING NUMBER: (1) ASSESSMENT: (1) JOB ID: [id number] [employer]- All Rights Reserved
== END ==
LOC: WI 09:57
PROVIDERS: ATTEND Internal Medicine
DX: R92.2 Inconclusive mammogram (principal)
CPT/HCPCS: 76642; G0206

== ENCOUNTER → 2017-10-13 | Outpatient (CLI) | payer OTHER ==
--- NOTE | 2017-10-13 14:13 | RADIOLOGY REPORT (SQ) ---
EXAM DESCRIPTION: CT LUNG CANCER SCREENING COMPLETED DATE/TIME: 10/13/2017 1:47 pm REASON FOR STUDY: COPD/ENCOUNTER FOR SCREENING FOR MAL LE OF RESPIRATORY ORGANS J44.9 CHRONIC OBST RUCTIVE PULMONARY DISEASE, UNSPECIFIED Z12.2 ENCNTR SCREEN FOR MALIGNANT NEOPLASM OF RESPIRATORY OR Has the patient had a Chest CT scan within the past year? Yes. Was the patient offered tobacco cessation counseling? Yes. Was the patient engaged in shared decision making for this test? Yes. Does the patient have signs or symptoms of Lung Cancer? No. Is the patient a smoker? Yes. How many packs per year? 365. How many years since quitting smoking? Current smoker. Patients age: 62. COMPARISON: 01/17/2017 and 08/09/2016. TECHNIQUE: Low Dose CT scan performed of the chest without intravenous contrast for purposes of scre ening for lung cancer. Images reviewed with lung, soft tissue and bone windows. Reconstructed coron al and sagittal MPR images reviewed. All images stored on PACS. All CT scanners at this facility use dose modulation, iterative reconstruction, and/or weight based d osing when appropriate to reduce radiation dose to as low as reasonably achievable (ALARA). [facility]: Dose Right [facility]: CareDose [facility]: Dose Right [facility]: Teradose 4D [facility]: [employer] RADIATION DOSE: mGy. . LIMITATIONS: No technical limitations. FINDINGS: LUNG NODULES: Stable small subpleural nodules and both lungs, measuring 4 to 6 mm, unchan ged. On axial series 3 right lung images 89 and 142 and in the left lung images 99, 155, and 1 are 7 1. REMAINING LUNGS AND PLEURA: No pleural effusions or calcifications. No pneumothorax. No scarrin g or interstitial changes. HILAR AND MEDIASTINAL STRUCTURES: No identified masses. No abnormal nodes. HEART AND VASCULAR STRUCTURES: No aortic aneurysm. No pericardial effusion. Coronary artery stents . CORONARY ARTERY CALCIFICATIONS: Mild to moderate calcifications. UPPER ABDOMEN, THYROID, BONES, OTHER SOFT TISSUES: No significant findings. Stable anterior upper ab dominal wall hernia. IMPRESSION: BENIGN FINDINGS IN THE LUNGS. NO OTHER CLINICALLY SIGNIFICANT/POTENTIALLY CLINICALLY SIGNIFICANT FINDINGS LUNGRADS: LUNGRADS: 2 BENIGN APPEARANCE OR BEHAVIOR. NODULES WITH A VERY LOW LIKELIHOOD OF BECOMING A CLINICALLY ACTIVE CANCER DUE TO SIZE OR LACK OF GROWTH. MODIFIER: NONE. RECOMMENDATION: Continue annual screening with LDCT in 12 months. COMMENT: CRITERIA: Solid nodule(s): < 6 mm; new < 4 mm. Part solid nodule(s): < 6 mm total diameter on baseline screening. Non solid nodule(s) (GGN): < 20 mm OR ? 20 and unchanged or slowly growing. Category 3 or 4 modules unchanged for ? 3 months. TECHNICAL DOCUMENTATION: JOB ID: [id number] Quality ID # [id number]: Final reports with documentation of one or more dose reduction techniques (e.g., Au tomated exposure control, adjustment of the mA and/or kV according to patient size, use of iterative reconstruction technique) 2010 [facility] Radiology Reading location - IP/workstation name: [email or web address]
== END ==
LOC: RAD 13:19
PROVIDERS: ATTEND Internal Medicine
DX: Z12.2 Encounter for screening for malignant neoplasm of respiratory organs (principal)
CPT/HCPCS: G0297

== ENCOUNTER 2017-11-18 20:26 | Emergency (ER) | payer OTHER ==
--- NOTE | 2017-11-18 22:24 | ER Document Report ---
ED General - General Chief Complaint: Swollen Glands Stated Complaint: ABSCESS Time Seen by Provider: 11/18/17 21:47 Notes: Patient is a 62-year-old female with medical history as recorded who presents with swelling to her left parotid gland. Patient states that the area swelling started this morning, was relatively unchanged throughout the day until she tried to eat tonight. She states that as she was getting ready to have dinner she noted the area started to become more swollen and painful. She states that there was a dull, constant, throbbing pain to the area that became progressively worse as she ate. This prompted her to come to the emergency department. She denies any history of similar symptoms in the past. She has not seen her general doctor regarding today's concerns. She denies any additional areas of pain or's any additional symptoms. She does note that the swelling and pain have almost completely resolved since she came to the emergency department. TRAVEL OUTSIDE OF THE [place] IN LAST 30 DAYS: No - Related Data Allergies/Adverse Reactions: Cephalosporins Allergy (Verified 01/17/17 21:52) Penicillins Allergy (Verified 01/17/17 21:52) [facility] Reductase Inhibitor Allergy (Verified 01/17/17 21:52) sulfamethoxazole [From Septra] Allergy (Verified 01/17/17 21:52) Tetanus Vaccines and Toxoid [Tetanus] Allergy (Verified 01/17/17 21:52) trimethoprim [From Septra] Allergy (Verified 01/17/17 21:52) Past Medical History - General Information source: Patient - Social History Smoking Status: Current Every Day Smoker Chew tobacco use (# tins/day): No Frequency of alcohol use: None Drug Abuse: None Lives with: Spouse/Significant other Family History: Reviewed & Not Pertinent Patient has suicidal ideation: No Patient has homicidal ideation: No - Past Medical History Cardiac Medical History: Reports: Hx Coronary Artery Disease, Hx Heart Attack - 2000, 2013, Hx Hypercholesterolemia, Hx Hypertension Pulmonary Medical History: Reports: Hx COPD - No home O2 Neurological Medical History: Reports: Hx Cerebrovascular Accident - 2000 Endocrine Medical History: Reports: Hx Diabetes Mellitus Type 1, Hx Diabetes Mellitus Type 2 Renal/ Medical History: Denies: Hx Peritoneal Dialysis GI Medical History: Reports: Hx Gastroesophageal Reflux Disease Psychiatric Medical History: Reports: Hx Depression Past Surgical History: Reports: Hx Cardiac Catheterization - X2, Hx Cardiac Surgery - stents X 3, Hx Section - x3, Hx Tubal Ligation - Immunizations Hx Diphtheria, Pertussis, Tetanus Vaccination: - allergic Review of Systems - Review of Systems Notes: Constitutional: Negative for fever. HENT: Positive for parotid swelling on the left. Eyes: Negative for visual changes. Cardiovascular: Negative for chest pain. Respiratory: Negative for shortness of breath. Gastrointestinal: Negative for abdominal pain, vomiting or diarrhea. Genitourinary: Negative for dysuria. Musculoskeletal: Negative for back pain. Skin: Negative for rash. Neurological: Negative for headaches, weakness or numbness. 10 point ROS negative except as marked above and in HPI. Physical Exam - Vital signs Vitals: Temp Pulse Resp BP Pulse Ox 98.0 F 59 L 16 142/75 H 93 11/18/17 20:55 11/18/17 20:55 11/18/17 20:55 11/18/17 20:55 11/18/17 20:55 Interpretation: Normal Notes: PHYSICAL EXAMINATION: GENERAL: Well-appearing, well-nourished and in no acute distress. HEAD: Atraumatic, normocephalic. EYES: Pupils equal round and reactive to light, extraocular movements intact, sclera anicteric, conjunctiva are normal. ENT: nares patent, oropharynx clear without exudates. Moist mucous membranes. Swelling over the left parotid gland, mildly tender to palpation NECK: Normal range of motion, supple without lymphadenopathy LUNGS: Breath sounds clear to auscultation bilaterally and equal. No wheezes rales or rhonchi. HEART: Regular rate and rhythm without murmurs ABDOMEN: Soft, nontender, normoactive bowel sounds. No guarding, no rebound. No masses appreciated. EXTREMITIES: Normal range of motion, no pitting or edema. No cyanosis. NEUROLOGICAL: No focal neurological deficits. Moves all extremities spontaneously and on command. PSYCH: Normal mood, normal affect. SKIN: Warm, Dry, normal turgor, no rashes or lesions noted. Course - Re-evaluation Re-evalutation: 11/18/17 22:22 Patient presents with signs and symptoms most consistent with sialoadenitis as she has swelling of the left parotid gland that was dramatically worsened after she started to eat dinner. She states even as the dinner was being prepared she felt the area with swelling and getting progressively worse which be very consistent with this diagnosis. She notes that since that time the swelling has gone down dramatically and she now has almost no pain to the area at all. I do not suspect a malignancy, reactive lymph node, abscess, and the patient has no evidence of airway compromise. I have recommended lemon fruit or candy to help expel the stone and explained to her that if this does not resolve her symptoms she may need to follow-up with ENT. At this time will discharge with return precautions and follow-up recommendations. Verbal discharge instructions given a the bedside and opportunity for questions given. Medication warnings reviewed. Patient is in agreement with this plan and has verbalized understanding of return precautions and the need for primary care follow-up in the next 24-72 hours. - Vital Signs Vital signs: Temp Pulse Resp BP Pulse Ox 98.8 F 57 L 16 147/80 H 97 11/18/17 22:34 11/18/17 22:34 11/18/17 20:55 11/18/17 22:34 11/18/17 22:34 Discharge - Discharge Clinical Impression: Sialoadenitis, Parotid gland swelling Condition: Good Disposition: HOME, SELF-CARE Additional Instructions: You have swelling of your parotid gland likely induced due to a salivary duct stone also called sialoadenitis. You should suck on sour candy such as lemon candies or actually suck on lemon fruit. If this does not resolve the swelling and discomfort to the area you may need to follow-up with an ear nose and throat doctor to have a stone removed. Please return if you have worsening of your swelling, fever, vomiting, difficulty breathing, difficulty swallowing, or any other symptoms that are worrisome to you. Referrals: EMILIANO RIVERA MD [Primary Care Provider] - Follow up as needed
[2017-11-18 22:38] VITALS: BP 147/80
== END 2017-11-18 22:52 | disposition home or self-care (01) ==
LOC: ER 20:26
DX: K11.20 Sialoadenitis, unspecified (principal); F17.200 Nicotine dependence, unspecified, uncomplicated; I25.10 Atherosclerotic heart disease of native coronary artery without angina pectoris; E78.00 Pure hypercholesterolemia, unspecified; I10 Essential (primary) hypertension; J44.9 Chronic obstructive pulmonary disease, unspecified; Z88.3 Allergy status to other anti-infective agents; Z88.0 Allergy status to penicillin; I25.2 Old myocardial infarction; Z99.81 Dependence on supplemental oxygen; Z86.73 Personal history of transient ischemic attack (TIA), and cerebral infarction without residual deficits; Z98.51 Tubal ligation status
CPT/HCPCS: 99283

== ENCOUNTER → 2017-12-13 | Outpatient (CLI) | payer OTHER ==
--- NOTE | 2017-12-13 12:13 | RADIOLOGY REPORT (SQ) ---
EXAM DESCRIPTION: CT SOFT TISSUE NECK WITHOUT COMPLETED DATE/TIME: 12/13/2017 11:05 am REASON FOR STUDY: R22.1 LOCALIZED SWELLING, MASS AND LUMP, NECK R22.1 LOCALIZED SWELLING, MASS AND LUMP, NECK Parotid gland swelling on the left, intermittent left facial pain COMPARISON: None. TECHNIQUE: Noncontrast scanning from skull base through lung apices with review of bone, soft tissue and lung windows. Reconstructed coronal and sagittal MPR images reviewed. All images stored on PAC S. All CT scanners at this facility use dose modulation, iterative reconstruction, and/or weight based d osing when appropriate to reduce radiation dose to as low as reasonably achievable (ALARA). [facility]: Dose Right [facility]: CareDose [facility]: Dose Right [facility]: Teradose 4D [facility]: [employer] RADIATION DOSE: 23.5 mGy. LIMITATIONS: No IV contrast. Patient is a poor historian and states she had some kind of prior CT w ith IV contrast for which she required resuscitation afterwards FINDINGS: A 2 to 3 mm salivary duct calculus is present at the junction of the superficial lobe paro tid gland and [place]'s duct. This is best shown on axial image 24. No other left-sided [place]'s duct calculi. No other calcifications in the left parotid gland itself . No intra parotid abscess or surrounding periparotid inflammation. Incidental finding of a 8 x 11 mm intra parotid lymph node dorsal to the retromandibular vein on axial image 33. SKULL BASE: Inferior brain parenchyma unremarkable. MAJOR SALIVARY GLANDS: Left parotid gland as above. Right parotid gland, submandibular, sublingual g lands are unremarkable. LYMPHADENOPATHY: No adenopathy. MUCOSAL MASSES OR ASYMMETRY: No mucosal masses or asymmetry. LARYNX/CORDS: No abnormal findings. LUNG APICES: Clear. BONES: Intact. THYROID: Mild diffuse thyroid gland enlargement with nodularity likely from goiter. PARANASAL SINUSES: Clear. OTHER: No other significant finding. IMPRESSION: 2 mm salivary duct calculus at the junction of [place] duct and the left parotid gland . TECHNICAL DOCUMENTATION: JOB ID: [id number] Quality ID # [id number]: Final reports with documentation of one or more dose reduction techniques (e.g., Au tomated exposure control, adjustment of the mA and/or kV according to patient size, use of iterative reconstruction technique) 2010 [employer]- All Rights Reserved Reading location - IP[facility]workstation [facility]: [email or web address]
== END ==
LOC: RAD 10:58
PROVIDERS: ATTEND Internal Medicine
DX: R22.1 Localized swelling, mass and lump, neck (principal); K11.5 Sialolithiasis
CPT/HCPCS: 70490

== ENCOUNTER 2018-01-06 12:03 | Emergency (ER) | payer OTHER ==
--- NOTE | 2018-01-06 12:33 | ER Document Report ---
ED Extremity Problem, Upper - General Chief Complaint: Arm Pain Stated Complaint: FALL Time Seen by Provider: 01/06/18 12:09 Mode of Arrival: Ambulatory Information source: Patient Notes: 62-year-old female presents to ED for complaint of right hand wrist and arm pain after she fell last night while taking the dog for walk. States the dog got tangled up in his leash and then when she was untangling the dog she got tangled up in the leash and fell. She states she has a history of coronary artery disease with stents. She is alert and oriented speaking in full sentences, respirations regular and unlabored, walks with a even steady gait. She states she took [place] because that is what she has at home and that is not him have to pain. TRAVEL OUTSIDE OF THE [place] IN LAST 30 DAYS: No - HPI Patient complains to provider of: Injury, Pain, Swelling, Left Onset: Yesterday Recent injury: Yes Where: Home, Outdoors Quality of pain: Achy, Throbbing Pain Level: 4 Context: Fall Associated symptoms: None Exacerbated by: Movement, Exertion Relieved by: Nothing Similar symptoms previously: No Recently seen / treated by doctor: No - Related Data Allergies/Adverse Reactions: Cephalosporins Allergy (Verified 01/06/18 12:04) Penicillins Allergy (Verified 01/06/18 12:04) Flmzdya-Sic-Aia Reductase Inhibitor Allergy (Verified 01/06/18 12:04) sulfamethoxazole [From Septra] Allergy (Verified 01/06/18 12:04) Tetanus Vaccines and Toxoid [Tetanus] Allergy (Verified 01/06/18 12:04) trimethoprim [From Septra] Allergy (Verified 01/06/18 12:04) Past Medical History - General Information source: Patient - Social History Smoking Status: Current Every Day Smoker Cigarette use (# per day): Yes - 7-10 Chew tobacco use (# tins/day): No Smoking Education Provided: Yes - 4 min Frequency of alcohol use: None Drug Abuse: None Lives with: Family Family History: Reviewed & Not Pertinent Patient has suicidal ideation: No Patient has homicidal ideation: No - Past Medical History Cardiac Medical History: Reports: Hx Coronary Artery Disease, Hx Heart Attack - 2000, 2013, Hx Hypercholesterolemia, Hx Hypertension Pulmonary Medical History: Reports: Hx COPD - No home O2 EENT Medical History: Reports: None Neurological Medical History: Reports: Hx Cerebrovascular Accident - 2000 Endocrine Medical History: Reports: Hx Diabetes Mellitus Type 2 Renal/ Medical History: Reports: None Malignancy Medical History: Reports: None GI Medical History: Reports: Hx Gastroesophageal Reflux Disease Musculoskeltal Medical History: Reports Hx Musculoskeletal Trauma Skin Medical History: Reports None Psychiatric Medical History: Reports: Hx Depression Traumatic Medical History: Reports: None Infectious Medical History: Reports: None Past Surgical History: Reports: Hx Cardiac Catheterization - X2, Hx Cardiac Surgery - stents X 3, Hx Section - x3, Hx Tubal Ligation - Immunizations Hx Diphtheria, Pertussis, Tetanus Vaccination: - allergic Review of Systems - Review of Systems Constitutional: No symptoms reported EENT: No symptoms reported Cardiovascular: No symptoms reported Respiratory: No symptoms reported Gastrointestinal: No symptoms reported Genitourinary: No symptoms reported Female Genitourinary: No symptoms reported Musculoskeletal: Other - Right arm hand and wrist pain after she fell Skin: No symptoms reported Hematologic/Lymphatic: No symptoms reported Neurological/Psychological: No symptoms reported Physical Exam - Vital signs Vitals: Temp Pulse Resp BP Pulse Ox 98.8 F 57 L 18 142/65 H 97 01/06/18 12:09 01/06/18 12:09 01/06/18 12:09 01/06/18 12:09 01/06/18 12:09 Interpretation: Normal - General General appearance: Appears well, Alert - HEENT Head: Normocephalic, Atraumatic Eyes: Normal Pupils: PERRL - Respiratory Respiratory status: No respiratory distress Chest status: Nontender Breath sounds: Normal Chest palpation: Normal - Cardiovascular Rhythm: Regular Heart sounds: Normal auscultation Murmur: No - Abdominal Inspection: Normal Distension: No distension Bowel sounds: Normal Tenderness: Nontender Organomegaly: No organomegaly - Back Back: Normal, Nontender - Extremities General upper extremity: Nontender, Normal color, Normal temperature General lower extremity: Normal inspection, Nontender, Normal color, Normal ROM , Normal temperature, Normal weight bearing. No: Shane's sign Forearm: Tender - swelling Wrist: Tender, Axial load of thumb pain, Ecchymosis, Limited ROM Hand: Tender, No evidence of human bite, No evidence of FB, Swelling - Neurological Neuro grossly intact: Yes Cognition: Normal Orientation: AAOx4 [place] Coma Scale Eye Opening: Spontaneous [place] Coma Scale Verbal: Oriented [place] Coma Scale Motor: Obeys Commands [place] Coma Scale Total: 15 Speech: Normal Motor strength normal: LUE, RUE, LLE, RLE Sensory: Normal - Psychological Associated symptoms: Normal affect, Normal mood - Skin Skin Temperature: Warm Skin Moisture: Dry Skin Color: Normal Course - Re-evaluation Re-evalutation: 01/06/18 15:11 X-rays discussed with patient and written report given to patient. Patient was treated with cock-up splint and sling for the pain to her arm and wrist and hand. There is no bony abnormalities noted on the x-rays. Patient to follow- up with orthopedics. - Vital Signs Vital signs: Temp Pulse Resp BP Pulse Ox 98.9 F 67 18 127/56 H 97 01/06/18 13:50 01/06/18 13:50 01/06/18 13:50 01/06/18 13:50 01/06/18 13:50 - Diagnostic Test Radiology reviewed: Image reviewed, Reports reviewed Procedures - Immobilization Right Wrist Time completed: 13:50 Pre-Proc Neuro Vasc Exam: Normal Immobilizer type: Cock-up, Sling Performed by: PCT Post-Proc Neuro Vasc Exam: Normal Alignment checked and good: Yes Discharge - Discharge Clinical Impression: Contusion of right arm Qualifiers: Encounter type: initial encounter Qualified Code(s): S40.021A - Contusion of right upper arm, initial encounter Condition: Stable Disposition: HOME, SELF-CARE Additional Instructions: CONTUSION: Your injury has resulted in a contusion -- a crushing of the deep tissues. No injury to important structures was detected during the physician's exam. Contusions vary in the amount of pain they cause, and in the length of time required for healing. Typically, the area will become bruised, and will remain painful to touch for two or three weeks. However, most patients are back to working and playing within a few days. After the initial period of rest and cold-packs, your symptoms (together with the doctor's recommendations) will determine how rapidly you can get back to full activity. Usually this means "do what feels okay, but don't do things that hurt." If re-examination was recommended, it's important to follow up as instructed. Call the doctor or return any time if pain increases, if swelling becomes severe, if you develop numbness or weakness in an injured extremity, or if any other alarming symptoms occur. USE OF TYLENOL (ACETAMINOPHEN): Acetaminophen may be taken for pain relief or fever control. It's much safer than aspirin, offering a wider range of "safe" dosages. It is safe during . Some brand names are Tylenol, Panadol, Datril, Anacin 3, Tempra, and Liquiprin. Acetaminophen can be repeated every four hours. The following are maximum recommended dosages: WEIGHT Dose Drops Elixir Chewable( 80mg) (LBS.) drprs=droppers tsp=teaspoon 6 40 mg 0.4 ml (1/2) 6-11 80 mg 0.8 ml (full) tsp 1 tab 12-16 120 mg 1 1/2 drprs 3/4 tsp 1 1/2 tabs 17-23 160 mg 2 drprs 1 tsp 2 tabs 24-30 240 mg 3 drprs 1 1/2 tsp 3 tabs 30-35 320 mg 2 tsp 4 tabs 36-41 360 mg 2 1/4 tsp 4 1/2 tabs 42-47 400 mg 2 1/2 tsp 5 tabs 48-53 480 mg 3 tsp 6 tabs 54-59 520 mg 3 1/4 tsp 6 1/2 tabs 60-64 560 mg 3 1/2 tsp 7 tabs 65-70 600 mg 3 3/4 tsp 7 1/2 tabs 71-76 640 mg 4 tsp 8 tabs 77-82 720 mg 4 1/2 tsp 9 tabs 83-88 800 mg 5 tsp 10 tabs >89 pounds or adults 650 mg to 900 mg Acetaminophen can be repeated every four hours. Maximum dose not to exceed 4000 mg a day. These maximum recommended dosages are slightly higher than the dosages written on the product container, but these dosages are very safe and below the toxic dosage for acetaminophen. SPLINT PRECAUTIONS: A splint has been placed. This will protect the area while healing begins. Your problem does NOT normally require a cast. It MUST, however, be held still! Keep the splint on ALL THE TIME until instructed to remove it by the doctor. As you begin to use the area, be careful. You shouldn't do anything which causes discomfort -- you may disturb the injury even with the splint in place. After the initial period of rest and elevation, if splint does not prevent pain when you move, come back. You may require placement of a different splint , or a cast. If there is unexpected severe pain, or numbness, discoloration, or swelling beyond the splint, you should return at once. If you feel that the splint has broken or become loose, come back. ICE & ELEVATION: Apply ice packs frequently against the painful area. Many different schedules are recommended, such as "20 minutes on, 20 minutes off" or "one hour ice, two hours rest." If you need to work, you may need to go longer between ice treatments. You should plan to have the area ice packed AT LEAST one- fourth of the time. The ice should be applied over the wrap, tape, or splint, or over a layer of cloth -- not directly against the skin. Some ice bags have a built-in cloth and can be put directly on the skin. Your injured part should be elevated as much as possible over the next 48 hours. Try to keep the injury above the level of the heart. Avoid use of the injured area. Elevation and rest will decrease the swelling. USE OF IXRL-OKQ-SHXCXKY IBUPROFEN: Ibuprofen (Advil, Nuprin, Medipren, Motrin IB) is a medication for fever and pain control. In addition, it has anti- inflammatory effects which may be beneficial, especially in the treatment of injuries. It's best to take ibuprofen with food. Persons with ulcer disease or allergy to aspirin should notify their physician of this before taking ibuprofen. Ibuprofen can be given every four to six hours, for a total of four doses daily. Age Pain or fever dose Antiinflammatory dose 6-8 yr 200 mg (1 tab) 200 mg (1 tab) 9-11 yr 200 mg (1 tab) 200-400 mg (1-2 tab) 11-14 yr 200-400 mg (1-2 tab) 400 mg (2 tab) 15-adult 400 mg (2 tab) 600 mg (3 tab) FOLLOW-UP CARE: If you have been referred to a physician for follow-up care, call the physician s office for an appointment as you were instructed or within the next two days. If you experience worsening or a significant change in your symptoms, notify the physician immediately or return to the Emergency Department at any time for re-evaluation. Forms: Elevated Blood Pressure, Smoking Cessation Education Referrals: EMILIANO RIVERA MD [Primary Care Provider] - Follow up as needed ZAINA MCLEAN, [ACTIVE STAFF] - Follow up as needed
--- NOTE | 2018-01-06 13:28 | RADIOLOGY REPORT (SQ) ---
EXAM DESCRIPTION: FOREARM RIGHT COMPLETED DATE/TIME: 01/06/2018 12:51 pm REASON FOR STUDY: fall pain swelling COMPARISON: None. NUMBER OF VIEWS: Two views. TECHNIQUE: Two radiographic images acquired of the right forearm, including elbow and wrist in at le ast one projection. LIMITATIONS: None. FINDINGS: MINERALIZATION: Normal. BONES: No acute fracture. No worrisome bone lesions. SOFT TISSUES: No obvious swelling or foreign body. OTHER: No other significant finding. IMPRESSION: NEGATIVE STUDY OF THE RIGHT FOREARM. NO RADIOGRAPHIC EVIDENCE OF ACUTE INJURY. TECHNICAL DOCUMENTATION: JOB ID: [id number] [employer]- All Rights Reserved Reading location - IP/workstation name: [email or web address]
--- NOTE | 2018-01-06 13:29 | RADIOLOGY REPORT (SQ) ---
EXAM DESCRIPTION: HAND RIGHT 3 VIEWS COMPLETED DATE/TIME: 01/06/2018 12:51 pm REASON FOR STUDY: fall pain swelling COMPARISON: None. EXAM PARAMETERS: NUMBER OF VIEWS: Three views. TECHNIQUE: AP, lateral and oblique radiographic images acquired of the right hand. LIMITATIONS: None. FINDINGS: MINERALIZATION: Normal. BONES: No acute fracture or dislocation. No worrisome bone lesions. JOINTS: No effusions. SOFT TISSUES: No soft tissue swelling. No foreign body. OTHER: No other significant finding. IMPRESSION: NEGATIVE STUDY OF THE RIGHT HAND. NO RADIOGRAPHIC EVIDENCE OF ACUTE INJURY. TECHNICAL DOCUMENTATION: JOB ID: [id number] [employer] All Rights Reserved Reading location - IP/workstation name: [email or web address]
--- NOTE | 2018-01-06 13:30 | RADIOLOGY REPORT (SQ) ---
EXAM DESCRIPTION: WRIST RIGHT 3 VIEWS COMPLETED DATE/TIME: 01/06/2018 12:51 pm REASON FOR STUDY: fall pain swelling COMPARISON: None. NUMBER OF VIEWS: Three views. TECHNIQUE: AP, lateral, and oblique radiographic images acquired of the right wrist. LIMITATIONS: None. FINDINGS: MINERALIZATION: Normal. BONES: No acute fracture or dislocation. No worrisome bone lesions. Normal alignment. SOFT TISSUES: No soft tissue swelling. No foreign body. OTHER: No other significant finding. IMPRESSION: NEGATIVE STUDY OF THE RIGHT WRIST. NO RADIOGRAPHIC EVIDENCE OF ACUTE INJURY. TECHNICAL DOCUMENTATION: JOB ID: [id number] [employer]- All Rights Reserved Reading location - IP/workstation name: [email or web address]
[2018-01-06 13:51] VITALS: BP 127/56
== END 2018-01-06 13:53 | disposition home or self-care (01) ==
LOC: ER 12:03
DX: S40.021A Contusion of right upper arm, initial encounter (principal); W01.0XXA Fall on same level from slipping, tripping and stumbling without subsequent striking against object, initial encounter; Y93.K1 Activity, walking an animal; Y92.008 Other place in unspecified non-institutional (private) residence as the place of occurrence of the external cause; F17.210 Nicotine dependence, cigarettes, uncomplicated; I25.10 Atherosclerotic heart disease of native coronary artery without angina pectoris; E78.00 Pure hypercholesterolemia, unspecified; I10 Essential (primary) hypertension; E11.9 Type 2 diabetes mellitus without complications; I25.2 Old myocardial infarction; Z98.51 Tubal ligation status; Z86.73 Personal history of transient ischemic attack (TIA), and cerebral infarction without residual deficits; Z88.0 Allergy status to penicillin
CPT/HCPCS: 99406; 99283; 73090; 73130; 73110; L3908

== ENCOUNTER → 2018-01-20 | Outpatient (CLI) | payer OTHER ==
--- NOTE | 2018-01-20 14:39 | RADIOLOGY REPORT (SQ) ---
EXAM DESCRIPTION: U/S THYROID/SFT TISS HD NECK COMPLETED DATE/TIME: 01/20/2018 1:59 pm REASON FOR STUDY: SIALOLITHIASIS (K11.5), MULTINODULAR GOITER (E04.2) K11.5 SIALOLITHIASIS E04.2 N ONTOXIC MULTINODULAR GOITER Z71.1 PERSON W FEARED HLTH COMPLAINT IN WHOM NO DIAGNOSIS IS COMPARISON: CT angio chest 06/02/2014, 11/26/2014, 08/09/2016, 01/17/2017 CT soft tissue neck 12/13/2017 Carotid Doppler 11/27/2015 TECHNIQUE: Patient was sent today for evaluation of the left parotid gland with ultrasound and possi ble ultrasound-guided core biopsy. Patient was also sent today for evaluation of the thyroid gland with possible ultrasound-guided thyro id fine-needle aspirate. LIMITATIONS: None. FINDINGS: Bilateral parotid gland ultrasound was performed. Scanning was performed by both myself a s well as the technologist. On the left side, the parotid gland is normal in size. No dilated ducts . In the superficial lobe parotid gland, an 8 x 4 mm lymph node is present with preserved central hi lar fat and normal lymph node cortical thickness. This is smaller than on CT soft tissue neck 018 where it measured 12 x 9 mm in size. Biopsy of this lymph node was deferred. Ultrasound of the right parotid gland was performed. No worrisome findings. Benign superficial db parotid lymph node, 5 mm in size with normal cortical thickness and preserved central hilar fat. Thyroid ultrasound was performed. The thyroid gland is diffusely heterogeneous with multiple nodules likely a multinodular goiter. Right lobe 5 x 2.4 x 2.2 cm in size, with a 10 mm colloid cyst in the upper pole. Left lobe 5 x 1.8 x 2.4 cm in size. Overall appearance is very similar compared to CT exams dating back to 2013. Biopsy was deferred. IMPRESSION: Decrease in size of left intra parotid lymph node compared to CT soft tissue neck 018. Biopsy deferred. Very heterogeneous multinodular thyroid gland similar compared to studies dating back 2013. No thyro id biopsy was performed. TECHNICAL DOCUMENTATION: JOB ID: [id number] [employer]- All Rights Reserved Reading location - IP/workstation name: [email or web address]
== END ==
LOC: EDSTATUS 10:02 → RAD 12:31
PROVIDERS: ATTEND Otolaryngology
DX: K11.5 Sialolithiasis (principal); E04.2 Nontoxic multinodular goiter; Z71.1 Person with feared health complaint in whom no diagnosis is made; Z88.1 Allergy status to other antibiotic agents
CPT/HCPCS: 76536

== ENCOUNTER 2018-02-22 07:50 | Day surgery (SDC) | payer OTHER ==
[~2018-02-22 07:50] MED LIST changes: +KETOROLAC TROMETHAMINE 0.45% 4 DROP/0.4 ML DROPERETTE OD PRN; -METOPROLOL TARTRATE 25 MG TABLET PO ONE; +MIDAZOLAM 2 MG/2 ML INJ ONE
[2018-02-22] MEDS: CYCLOPENTOLATE 0.2%/PHENYLEPHRINE 1% OPH SOLN 2 ML OD PRN ×5 (08:24→08:44)
[2018-02-22] MEDS: BESIFLOXACIN HCL 0.6% OPH SUSP 5 ML BOTTLE OD PRN ×5 (08:24→09:25)
[2018-02-22] MEDS: TROPICAMIDE 1% OPH SOLN 3 ML OD PRN ×5 (08:24→08:44)
[2018-02-22] MEDS: TETRACAINE HCL 0.5% OPH SOLN 0.6 ML DROPERETTE OD PRN ×4 (08:25→09:00)
[2018-02-22] MEDS: EPINEPHRINE INJ/PF 1 MG/1 ML AMPULE ONE ×2 (09:14)
[2018-02-22] MEDS: LIDOCAINE 1% INJ-PF (10 MG/ML) 30 ML SDV ONE ×2 (09:14)
[2018-02-22] MEDS: CHONDR SU A NA/HYALUR INTRAOC KIT (SURGICARE) ONE ×2 (09:16)
[2018-02-22] MEDS: TOBRAMYCIN SULFATE/DEXAMETH OPH OINTMENT 3.5 GM ONE ×2 (09:25)
== END 2018-02-22 10:15 | disposition home or self-care (01) ==
LOC: SC 07:50
PROVIDERS: ATTEND Ophthalmology
DX: H25.11 Age-related nuclear cataract, right eye (principal); J44.9 Chronic obstructive pulmonary disease, unspecified; I25.10 Atherosclerotic heart disease of native coronary artery without angina pectoris; I10 Essential (primary) hypertension; F17.210 Nicotine dependence, cigarettes, uncomplicated; G40.909 Epilepsy, unspecified, not intractable, without status epilepticus; K21.9 Gastro-esophageal reflux disease without esophagitis; Z79.51 Long term (current) use of inhaled steroids; Z79.899 Other long term (current) drug therapy; Z79.82 Long term (current) use of aspirin; Z88.2 Allergy status to sulfonamides; Z88.8 Allergy status to other drugs, medicaments and biological substances; Z88.0 Allergy status to penicillin; Z86.73 Personal history of transient ischemic attack (TIA), and cerebral infarction without residual deficits; I25.2 Old myocardial infarction
CPT/HCPCS: 66984; V2630; J2250; J3490 ×3; J0171; 142

== ENCOUNTER 2018-03-08 08:42 | Day surgery (SDC) | payer OTHER ==
[~2018-03-08 08:42] MED LIST changes: -KETOROLAC TROMETHAMINE 0.45% 4 DROP/0.4 ML DROPERETTE OD PRN; +KETOROLAC TROMETHAMINE 0.45% 4 DROP/0.4 ML DROPERETTE OS PRN; -MIDAZOLAM 2 MG/2 ML INJ ONE
[2018-03-08] MEDS: TETRACAINE HCL 0.5% OPH SOLN 0.6 ML DROPERETTE OS PRN ×3 (09:15→10:03)
[2018-03-08] MEDS: CYCLOPENTOLATE 0.2%/PHENYLEPHRINE 1% OPH SOLN 2 ML OS PRN ×3 (09:16→09:44)
[2018-03-08] MEDS: BESIFLOXACIN HCL 0.6% OPH SUSP 5 ML BOTTLE OS PRN ×4 (09:16→10:24)
[2018-03-08] MEDS: TROPICAMIDE 1% OPH SOLN 3 ML OS PRN ×3 (09:16→09:44)
[2018-03-08] MEDS ORDERED: FENTANYL CITRATE INJ/PF 100 MCG/2 ML AMPUL ONE (09:46)
[2018-03-08] MEDS ORDERED: MIDAZOLAM 2 MG/2 ML INJ ONE (09:46)
[2018-03-08] MEDS: LIDOCAINE 1% INJ-PF (10 MG/ML) 30 ML SDV ONE ×2 (10:14)
[2018-03-08] MEDS: CHONDR SU A NA/HYALUR INTRAOC KIT (SURGICARE) ONE ×2 (10:15)
[2018-03-08] MEDS: EPINEPHRINE INJ/PF 1 MG/1 ML AMPULE ONE ×2 (10:15)
[2018-03-08] MEDS: TOBRAMYCIN SULFATE/DEXAMETH OPH OINTMENT 3.5 GM ONE ×2 (10:24)
== END 2018-03-08 11:00 | disposition home or self-care (01) ==
LOC: SC 08:42
PROVIDERS: ATTEND Ophthalmology
DX: H25.12 Age-related nuclear cataract, left eye (principal); Z98.41 Cataract extraction status, right eye; I25.10 Atherosclerotic heart disease of native coronary artery without angina pectoris; J45.909 Unspecified asthma, uncomplicated; I10 Essential (primary) hypertension; F17.210 Nicotine dependence, cigarettes, uncomplicated; E78.5 Hyperlipidemia, unspecified; J43.9 Emphysema, unspecified; E66.9 Obesity, unspecified; I25.2 Old myocardial infarction; Z86.73 Personal history of transient ischemic attack (TIA), and cerebral infarction without residual deficits; Z68.35 Body mass index [BMI] 35.0-35.9, adult; Z79.51 Long term (current) use of inhaled steroids; Z79.82 Long term (current) use of aspirin; Z79.899 Other long term (current) drug therapy; Z88.2 Allergy status to sulfonamides; Z88.0 Allergy status to penicillin; Z88.8 Allergy status to other drugs, medicaments and biological substances; Z88.7 Allergy status to serum and vaccine
CPT/HCPCS: 66984; V2630; J2250; J3490 ×3; J0171; J3010; 142

== ENCOUNTER → 2018-10-02 | Outpatient (CLI) | payer OTHER ==
--- NOTE | 2018-10-02 14:45 | RADIOLOGY REPORT (SQ) ---
EXAM DESCRIPTION: WRIST RIGHT 3 VIEWS COMPLETED DATE/TIME: 10/02/2018 2:21 pm REASON FOR STUDY: RT WRIST PAIN M25.531 PAIN IN RIGHT WRIST COMPARISON: 01/06/2018 NUMBER OF VIEWS: Three views. TECHNIQUE: AP, lateral, and oblique radiographic images acquired of the right wrist. LIMITATIONS: None. FINDINGS: MINERALIZATION: Normal. BONES: No acute fracture or dislocation. Mild narrowing at the radiocarpal joint. Small stable well corticated ossific density adjacent to the radial aspect of the scaphoid bone, unchanged finding sin ce the prior study. Normal alignment. SOFT TISSUES: No soft tissue swelling. No foreign body. OTHER: No other significant finding. IMPRESSION: 1. No significant interval changes since the prior examination dated 01/06/2018. No acut e osseous findings. TECHNICAL DOCUMENTATION: JOB ID: [id number] [employer] [address]- All Rights Reserved Reading location - IP/workstation name: [email or web address]
== END ==
LOC: OD 14:05
DX: M25.531 Pain in right wrist (principal)

== ENCOUNTER → 2019-01-10 | Outpatient (CLI) | payer OTHER ==
--- NOTE | 2019-01-10 10:48 | RADIOLOGY REPORT (SQ) ---
EXAM DESCRIPTION: MRI HEAD WITHOUT COMPLETED DATE/TIME: 01/10/2019 9:34 am REASON FOR STUDY: HEADACHE R51 HEADACHE COMPARISON: 11/28/2015 TECHNIQUE: Multiplanar imaging includes non-contrasted T1, T2, FLAIR, and Diffusion with ADC map seq uences. Images stored on PACS. LIMITATIONS: None. FINDINGS: ANATOMY: No anomalies. Normal vascular flow voids. Pituitary fossa normal. CSF SPACES: Normal in size and contour. No hemorrhage. CEREBRUM: A few high-signal intensity lesions scattered throughout the white matter on FLAIR imaging with distribution suggesting chronic micro-vascular ischemic change. Sulci and gyri normal in size a nd contour. No evidence of hemorrhage, mass or extraaxial fluid collection. POSTERIOR FOSSA: No signal alteration. No hemorrhage. No edema, masses or mass effect. Internal young tory canals, cerebello-pontine angles, mastoids normal. DIFFUSION: Negative for acute or sub-acute infarction. ORBITS: No masses. Globes normal. PARANASAL SINUSES: No fluid levels. Mucosa normal. OTHER: No other significant finding. IMPRESSION: Mild chronic ischemic changes. EVIDENCE OF ACUTE STROKE: NO. TECHNICAL DOCUMENTATION: JOB ID: [id number] [employer]- All Rights Reserved Reading location - IP/workstation name: [email or web address]
--- NOTE | 2019-01-10 11:35 | RADIOLOGY REPORT (SQ) ---
EXAM DESCRIPTION: CERV SP 4 OR 5 VIEWS COMPLETED DATE/TIME: 01/10/2019 10:14 am REASON FOR STUDY: CERVICALGIA OF [place]CCIPIT[place] AXIAL REGION R51 HEADACHE COMPARISON: None. NUMBER OF VIEWS: Seven views. TECHNIQUE: AP, lateral, obliques, flexion, extension, and odontoid radiographic images acquired of t he cervical spine. LIMITATIONS: None. FINDINGS: MINERALIZATION: Osteopenic. ALIGNMENT: Minimal anterolisthesis at C3-4, likely degenerative. FLEXION/EXTENSION: Limited extension excursion. No abnormal motion. VERTEBRAE: Vertebral bodies of normal height. DISCS: Multilevel disc space narrowing with small osteophytes. C4-5 and C5-6 particularly. FORAMINA: No critical foraminal narrowing bilaterally. Up to moderate left C3-4 narrowing. LATERAL AND POSTERIOR ELEMENTS: Facets, lateral masses, and spinous processes without significant fin dings. HARDWARE: None in the spine. SOFT TISSUES: No masses or calcifications. Lung apices clear. OTHER: No other significant finding. IMPRESSION: Osteopenia. Spondylosis. No abnormal motion. No fracture evident. TECHNICAL DOCUMENTATION: JOB ID: [id number] [employer]- All Rights Reserved Reading location - IP/workstation name: [employer]
== END ==
LOC: RAD 08:59
PROVIDERS: ATTEND Internal Medicine
DX: M54.2 Cervicalgia (principal); R51 Headache; M47.892 Other spondylosis, cervical region; M85.88 Other specified disorders of bone density and structure, other site
CPT/HCPCS: 70551; 72050

== ENCOUNTER → 2019-06-21 | Outpatient (CLI) | payer OTHER ==
--- NOTE | 2019-06-21 10:54 | RADIOLOGY REPORT (SQ) ---
EXAM DESCRIPTION: CT LUNG CANCER SCREENING COMPLETED DATE/TIME: 06/21/2019 9:23 am REASON FOR STUDY: SMOKER (Z12.2) Z12.2 ENCNTR SCREEN FOR MALIGNANT NEOPLASM OF RESPIRATORY OR Z87.8 91 PERSONAL HISTORY OF NICOTINE DEPENDENCE Has the patient had a Chest CT scan within the past year? N Was the patient offered tobacco cessation counseling? Y Was the patient engaged in shared decision making for this test? Y Does the patient have signs or symptoms of Lung Cancer? N Is the patient a smoker? Y How many pack years? 45 How many years since quitting smoking? 0 Patients age: 64 COMPARISON: CT angio chest 11/26/2014 CT chest without contrast 08/09/2016, 01/07/2017 CT lung cancer screening 10/13/2017 TECHNIQUE: Low Dose CT scan performed of the chest without intravenous contrast for purposes of scre ening for lung cancer. Images reviewed with lung, soft tissue and bone windows. Reconstructed coron al and sagittal MPR images reviewed. All images stored on PACS. All CT scanners at this facility use dose modulation, iterative reconstruction, and/or weight based d osing when appropriate to reduce radiation dose to as low as reasonably achievable (ALARA). [facility]: Dose Right [facility]: CareDose [facility]: Dose Right [facility]: Teradose 4D [facility]: [employer] RADIATION DOSE: CT Rad equipment meets quality standard of care and radiation dose reduction techniq ues were employed. CTDIvol: 2.1 mGy. DLP: 81 mGy-cm. mGy. . LIMITATIONS: No technical limitations. FINDINGS: LUNG NODULES: Multiple stable less than 3 mm subpleural noncalcified granulomas are prese nt, unchanged from screening CT 10/13/[address] angio chest 11/26/2014. REMAINING LUNGS AND PLEURA: There is patchy airspace disease just above the left hemidiaphragm wit h multiple ground-glass nodules, worrisome for bronchiolitis or early or developing pneumonia. There is lingular bandlike scarring or atelectasis, similar compared to previous studies. No pleural effusions. No pneumothorax. HILAR AND MEDIASTINAL STRUCTURES: No identified masses. No abnormal nodes. HEART AND VASCULAR STRUCTURES: No aortic aneurysm. No pericardial effusion. No cardiac devices. CORONARY ARTERY CALCIFICATIONS: Mild to moderate calcifications. UPPER ABDOMEN, THYROID, BONES, OTHER SOFT TISSUES: No significant findings. IMPRESSION: BENIGN FINDINGS IN THE LUNGS. Patchy airspace disease just above the left hemidiaphragm with multiple ground-glass nodules worrisom e for bronchiolitis, or early or developing pneumonia. LUNGRADS: LUNGRADS: 2 BENIGN APPEARANCE OR BEHAVIOR. NODULES WITH A VERY LOW LIKELIHOOD OF BECOMING A CLINICALLY ACTIVE CANCER DUE TO SIZE OR LACK OF GROWTH. MODIFIER: NONE. RECOMMENDATION: Continue annual screening with LDCT in 12 months. COMMENT: CRITERIA: Solid nodule(s): < 6 mm; new < 4 mm. Part solid nodule(s): < 6 mm total diameter on baseline screening. Non solid nodule(s) (GGN): < 20 mm OR ? 20 and unchanged or slowly growing. Category 3 or 4 modules unchanged for ? 3 months. TECHNICAL DOCUMENTATION: JOB ID: [id number] Quality ID # [id number]: Final reports with documentation of one or more dose reduction techniques (e.g., Au tomated exposure control, adjustment of the mA and/or kV according to patient size, use of iterative reconstruction technique) 2010 [facility] Reading location - IP/workstation name: [email or web address]
== END ==
LOC: RAD 09:01
PROVIDERS: ATTEND Internal Medicine
DX: Z12.2 Encounter for screening for malignant neoplasm of respiratory organs (principal); Z87.891 Personal history of nicotine dependence
CPT/HCPCS: G0297

== ENCOUNTER → 2019-07-16 | Outpatient (CLI) | payer OTHER ==
--- NOTE | 2019-07-16 17:12 | RADIOLOGY REPORT (SQ) ---
EXAM DESCRIPTION: WRIST RIGHT 3 VIEWS COMPLETED DATE/TIME: 07/16/2019 2:57 pm REASON FOR STUDY: PAIN RIGHT WRIST (M25.531) M25.531 PAIN IN RIGHT WRIST COMPARISON: 10/02/2018 NUMBER OF VIEWS: Three views. TECHNIQUE: AP, lateral, and oblique radiographic images acquired of the right wrist. LIMITATIONS: None. FINDINGS: MINERALIZATION: Normal. BONES: No acute fracture or dislocation. No worrisome bone lesions. Normal alignment. No significant osteophytes. JOINTS: Degenerative changes in the radiocarpal joint and carpal bones. Similar findings were noted previously. No acute fracture or dislocation. SOFT TISSUES: No swelling. No calcifications. OTHER: No other significant finding. IMPRESSION: Degenerative changes. No acute findings. TECHNICAL DOCUMENTATION: JOB ID: [id number] [employer]- All Rights Reserved Reading location - IP/workstation name: [email or web address]
== END ==
LOC: RAD 14:25
PROVIDERS: ATTEND Physician Assistant
DX: M25.531 Pain in right wrist (principal)

== ENCOUNTER → 2020-03-26 | Outpatient (CLI) | payer OTHER ==
--- NOTE | 2020-03-26 11:52 | RADIOLOGY REPORT (SQ) ---
EXAM DESCRIPTION: HUMERUS LEFT IMAGES COMPLETED DATE/TIME: 03/26/2020 11:42 am REASON FOR STUDY: PAIN IN LEFT ARM M79.602 PAIN IN LEFT ARM COMPARISON: None. NUMBER OF VIEWS: Two views. TECHNIQUE: Two radiographic images were acquired of the left humerus to include elbow and shoulder i n at least one projection. LIMITATIONS: None. FINDINGS: MINERALIZATION: Normal. BONES: No acute fracture or dislocation. No worrisome bone lesions. SOFT TISSUES: Soft tissue edema is noted overlying the upper forearm. OTHER: No other significant finding. IMPRESSION: Soft tissue edema. No bony abnormalities. TECHNICAL DOCUMENTATION: JOB ID: [id number] 2010 [employer]- All Rights Reserved Reading location - IP/workstation name: [email or web address]
== END ==
LOC: OD 11:30
PROVIDERS: ATTEND Internal Medicine
DX: M79.602 Pain in left arm (principal); R60.9 Edema, unspecified

== ENCOUNTER 2020-06-24 10:51 | Emergency (ER) | payer OTHER ==
--- NOTE | 2020-06-24 11:31 | ER Document Report ---
ED Medical Screen (RME) - General Chief Complaint: Weakness Stated Complaint: WEAKNESS,SWEATING,CHILLS Time Seen by Provider: 06/24/20 11:23 Primary Care Provider: EMILIANO RIVERA MD [Primary Care Provider] - Follow up as needed TRAVEL OUTSIDE OF THE [place] IN LAST 30 DAYS: No - HPI Notes: 06/24/20 11:30 65-year-old female with a history of COPD, GERD, hypoglycemia, MIs with stents on baby aspirin and hypertension presents to the emergency room after testing positive for Covid on June 16, 2020 for feeling weak, sweating, dehydrated and chills for the last [address] Rivera is her primary care provider advised her to go to the emergency room today for further evaluation. Patient reports she has not been eating or drinking as much, denies any chest pain short ness of breath, nausea vomiting or diarrhea. Patient is not on oxygen at home she does smoke. Her roving sizer is Dr. Licona. She states she feels too weak to do anything at this point. Reports that she was not given any medications when she was diagnosed with Covid I have greeted and performed a rapid initial assessment of this patient. A comprehensive ED assessment and evaluation of the patient, analysis of test results and completion of the medical decision making process will be conducted by additional ED providers. PHYSICAL EXAMINATION: GENERAL: Chronically ill well-nourished and in no acute distress. HEAD: Atraumatic, normocephalic. EYES: Pupils equal round extraocular movements intact, conjunctiva are normal. NECK: Normal range of motion CV: s1, s2 regular LUNGS: Diminished breath sounds in upper lobes - Related Data Allergies/Adverse Reactions: Penicillins Allergy (Severe, Verified 06/24/20 11:14) rash/hives; UNCONSCIOUS Tetanus Vaccines and Toxoid [Tetanus] Allergy (Severe, Verified 06/24/20 11:14) rash/hives; Cephalosporins Allergy (Intermediate, Verified 06/24/20 11:14) RASH sulfamethoxazole [From Septra] Allergy (Intermediate, Verified 06/24/20 11:14) RASH trimethoprim [From Septra] Allergy (Intermediate, Verified 06/24/20 11:14) RASH levofloxacin [From Levaquin] Adverse Reaction (Severe, Verified 06/24/20 11:14) MUSCLE CRAMPS Qhowsfk-Lch-Zwv Reductase Inhibitor Adverse Reaction (Intermediate, Verified 06/24/20 11:14) MUSCLE CRAMPS Past Medical History - Social History Chew tobacco use (# tins/day): No Frequency of alcohol use: None Drug Abuse: None - Past Medical History Cardiac Medical History: Reports: Hx Coronary Artery Disease, Hx Heart Attack - 2000, 2013, Hx Hypercholesterolemia, Hx Hypertension Pulmonary Medical History: Reports: Hx Asthma, Hx COPD - No home O2 Neurological Medical History: Reports: Hx Seizures - FROM A FALL AT 22 YEARS OLD. Denies: Hx Cerebrovascular Accident Endocrine Medical History: Reports: Hx Diabetes Mellitus Type 1, Hx Diabetes Mellitus Type 2 Renal/ Medical History: Denies: Hx Peritoneal Dialysis GI Medical History: Reports: Hx Gastroesophageal Reflux Disease, Hx Hiatal Hernia. Denies: Hx Hepatitis, Hx Ulcer Musculoskeltal Medical History: Reports Hx Musculoskeletal Trauma Psychiatric Medical History: Reports: Hx Depression Infectious Medical History: Denies: Hx Hepatitis Past Surgical History: Reports: Hx Cardiac Catheterization - X2, Hx Cardiac Surgery - stents X 3, Hx Section - x3, Hx Tubal Ligation. Denies: Hx Hysterectomy, Hx Mastectomy, Hx Open Heart Surgery, Hx Pacemaker - Immunizations Hx Diphtheria, Pertussis, Tetanus Vaccination: - allergic Physical Exam - Vital signs Vitals: Temp Pulse Resp BP Pulse Ox 98.1 F 91 22 H 109/63 95 06/24/20 11:01 06/24/20 11:01 06/24/20 11:01 06/24/20 11:01 06/24/20 11:01 Course - Vital Signs Vital signs: Temp Pulse Resp BP Pulse Ox 98.1 F 91 22 H 109/63 95 06/24/20 11:01 06/24/20 11:01 06/24/20 11:01 06/24/20 11:01 06/24/20 11:01 Doctor's Discharge - Discharge Referrals: EMILIANO RIVERA MD [Primary Care Provider] - Follow up as needed
[2020-06-24 12:30] LABS: ABSOLUTE EOSINOPHILS # (AUTO) 0.1 10^3/uL (0.0-0.6); ABSOLUTE LYMPHOCYTES (AUTO) 1.2 10^3/uL (0.5-4.7); ABSOLUTE MONOCYTES (AUTO) 1.5 10^3/uL (0.1-1.4); ABSOLUTE NEUT (AUTO) 6.7 10^3/uL (1.7-8.2); BASOPHILS % (AUTO) 0.1 % (0-2); EOSINOPHILS % (AUTO) 0.6 % (0-6); HEMATOCRIT 48.9 % (36.0-47.0); HEMOGLOBIN 16.6 g/dL (12.0-15.5); LYMPHOCYTES % (AUTO) 12.3 % (13-45); MEAN CORPUSCULAR HEMOGLOBIN 30.3 pg (27.0-33.4); MEAN CORPUSCULAR VOLUME 89 fl (80-97); MONOCYTES % (AUTO) 15.4 % (3-13); PLATELET COUNT 366 10^3/uL (150-450); RED BLOOD COUNT 5.49 10^6/uL (3.72-5.28); RED CELL DISTRIBUTION WIDTH 13.2 % (11.5-14.0); SEGMENTED NEUTROPHILS % (AUTO) 71.6 % (42-78); TOTAL CELLS COUNTED % (AUTO) 100 %; WHITE BLOOD COUNT 9.4 10^3/uL (4.0-10.5)
[2020-06-24 12:46] LABS: ALBUMIN 4.3 g/dL (3.5-5.0); ALKALINE PHOSPHATASE 99 U/L (38-126); ANION GAP 14 (5-19); ASPARTATE AMINO TRANSFERASE 23 U/L (14-36); BILIRUBIN,DIRECT 0.2 mg/dL (0.0-0.4); BILIRUBIN,TOTAL 1.1 mg/dL (0.2-1.3); BLOOD UREA NITROGEN 13 mg/dL (7-20); CALCIUM 9.6 mg/dL (8.4-10.2); CARBON DIOXIDE 28 mmol/L (22-30); CHLORIDE 98 mmol/L (98-107); GLUCOSE 164 mg/dL (75-110); POTASSIUM 3.2 mmol/L (3.6-5.0); TOTAL PROTEIN 8.1 g/dL (6.3-8.2)
--- NOTE | 2020-06-24 12:47 | RADIOLOGY REPORT (SQ) ---
EXAM DESCRIPTION: CHEST SINGLE VIEW IMAGES COMPLETED DATE/TIME: 06/24/2020 12:33 pm REASON FOR STUDY: weakness COMPARISON: 06/28/2014 EXAM PARAMETERS: NUMBER OF VIEWS: One view. TECHNIQUE: Single frontal radiographic view of the chest acquired. RADIATION DOSE: NA LIMITATIONS: None. FINDINGS: LUNGS AND PLEURA: No opacities, masses or pneumothorax. No pleural effusion. MEDIASTINUM AND HILAR STRUCTURES: No masses. Contour normal. HEART AND VASCULAR STRUCTURES: Heart normal in size. Normal vasculature. BONES: No acute findings. HARDWARE: None in the chest. OTHER: No other significant finding. IMPRESSION: NO ACUTE RADIOGRAPHIC FINDING IN THE CHEST. TECHNICAL DOCUMENTATION: JOB ID: [id number] 2010 [employer]- All Rights Reserved Reading location - IP/workstation name: [email or web address]
--- NOTE | 2020-06-24 12:48 | EKG REPORT ---
SEVERITY:- ABNORMAL ECG - SINUS RHYTHM PROBABLE LEFT ATRIAL ABNORMALITY CONSIDER ANTEROSEPTAL INFARCT : Confirmed by: Tre Kiran MD 24-Jun-2020 12:47:44
[2020-06-24 12:58] LABS: TROPONIN I 0.019 ng/mL
[2020-06-24] MEDS ORDERED: POTASSIUM CHLORIDE 20 MEQ PACKET PO ONE (14:02)
[2020-06-24] MEDS ORDERED: NORMAL SALINE 1000 ML 1,000 ML IV ONE (14:02)
--- NOTE | 2020-06-24 15:22 | ER Document Report ---
ED General - General Chief Complaint: General Weakness Stated Complaint: WEAKNESS,SWEATING,CHILLS Time Seen by Provider: 06/24/20 11:23 Primary Care Provider: EMILIANO RIVERA MD [Primary Care Provider] - Follow up as needed TRAVEL OUTSIDE OF THE [place] IN LAST 30 DAYS: No - HPI Notes: Patient is a 65-year-old female who presents with fatigue. She states that she was diagnosed with Covid on June 16. She has been staying at home. Patient states she has gotten progressively more fatigued and is sleeping throughout the day. She states that she has not had an appetite and has not been eating or drinking. Patient states she feels dehydrated. She has had chills. No fever. Patient called her PCP who recommended she go to the ER for evaluation. She denies any dysuria. No chest pain. No shortness of breath. She states she is ambulating normally. Patient was concerned about being dehydrated. - Related Data Allergies/Adverse Reactions: Penicillins Allergy (Severe, Verified 06/24/20 11:14) rash/hives; UNCONSCIOUS Tetanus Vaccines and Toxoid [Tetanus] Allergy (Severe, Verified 06/24/20 11:14) rash/hives; Cephalosporins Allergy (Intermediate, Verified 06/24/20 11:14) RASH sulfamethoxazole [From Septra] Allergy (Intermediate, Verified 06/24/20 11:14) RASH trimethoprim [From Septra] Allergy (Intermediate, Verified 06/24/20 11:14) RASH levofloxacin [From Levaquin] Adverse Reaction (Severe, Verified 06/24/20 11:14) MUSCLE CRAMPS Qbbrjjz-Pyi-Ahd Reductase Inhibitor Adverse Reaction (Intermediate, Verified 06/24/20 11:14) MUSCLE CRAMPS Past Medical History - General Information source: Patient - Social History Smoking Status: Former Smoker Chew tobacco use (# tins/day): No Frequency of alcohol use: None Drug Abuse: None Family History: Reviewed & Not Pertinent Patient has homicidal ideation: No - Past Medical History Cardiac Medical History: Reports: Hx Coronary Artery Disease, Hx Heart Attack - 2000, 2013, Hx Hypercholesterolemia, Hx Hypertension Pulmonary Medical History: Reports: Hx Asthma, Hx COPD - No home O2 Neurological Medical History: Reports: Hx Seizures - FROM A FALL AT 22 YEARS OLD. Denies: Hx Cerebrovascular Accident Endocrine Medical History: Reports: Hx Diabetes Mellitus Type 1, Hx Diabetes Mellitus Type 2 Renal/ Medical History: Denies: Hx Peritoneal Dialysis GI Medical History: Reports: Hx Gastroesophageal Reflux Disease, Hx Hiatal Hernia. Denies: Hx Hepatitis, Hx Ulcer Musculoskeletal Medical History: Reports Hx Musculoskeletal Trauma Psychiatric Medical History: Reports: Hx Depression Infectious Medical History: Denies: Hx Hepatitis Past Surgical History: Reports: Hx Cardiac Catheterization - X2, Hx Cardiac Surgery - stents X 3, Hx Section - x3, Hx Tubal Ligation. Denies: Hx Hysterectomy, Hx Mastectomy, Hx Open Heart Surgery, Hx Pacemaker - Immunizations Hx Diphtheria, Pertussis, Tetanus Vaccination: - allergic Review of Systems - Review of Systems Notes: CONSTITUTIONAL: No fever or weight loss. Positive for fatigue. Positive for loss of taste and smell. Positive for loss of appetite. SKIN: No rash. HENT: No congestion, ear pain, or sore throat. EYES: No recent vision problems or eye pain. CARDIOVASCULAR: No chest pain or edema. RESPIRATORY: No cough, shortness of breath, congestion, or wheezing. GASTROINTESTINAL: No abdominal pain, nausea, vomiting, bloody stools or diarrhea. GENITOURINARY: No dysuria. MUSCULOSKELETAL: No joint pain or swelling. LYMPHATIC: No swollen glands. NEUROLOGIC: No seizures. No headache, focal weakness or sensory changes. HEMATOLOGIC: No unusual bruising or bleeding. PSYCHIATRIC: No depression or anxiety. Physical Exam - Vital signs Vitals: Temp Pulse Resp BP Pulse Ox 98.1 F 91 22 H 109/63 95 06/24/20 11:01 06/24/20 11:01 06/24/20 11:01 06/24/20 11:01 06/24/20 11:01 - General General appearance: Appears well In distress: None Notes: VITAL SIGNS: Within normal limits. GENERAL: No acute distress, non-toxic appearance. Appears fatigued. HEAD: Normal with no signs of head trauma. EYES: EOMI, conjunctiva normal, no discharge. EARS: Hearing grossly intact. NOSE: Normal. NECK: Normal range of motion, no tenderness, supple, no lymphadenopathy, No adenopathy, no JVD. CHEST: Clear breath sounds bilaterally. No wheezes, rales, or rhonchi. CARDIAC: Regular rate and rhythm. S1 and S2, without murmurs, gallops, or rubs. VASCULAR: No Edema. ABDOMEN: Normal and soft with no tenderness GENITOURINARY: Normal, No tenderness MUSCULOSKELETAL: Good range of motion of all major joints. Extremities without clubbing, cyanosis or edema. NEUROLOGICAL: Alert and oriented x 3. No focal sensory or strength deficits. Speech normal. Follows commands appropriately. PSYCHIATRIC: Normal Affect, judgement and mood. SKIN: Normal appearance with no rashes or lesions. Course - Re-evaluation Re-evalutation: 06/24/20 15:21 Patient's lab work is consistent with dehydration. She also has hypokalemia. She will be given potassium and fluids. Patient gave a urine sample but states she missed the cup. 06/24/20 22:15 patient states she feels much better after fluids. She was unable to tolerate the liquid potassium so I did order her the pill form. Patient was able to drink a cup and a half of juice. She has ambulated to the bathroom multiple times with no respiratory distress. Her vitals are normal. I did offer patient admission for IV fluids and dehydration but she states that she can take p.o. and would prefer to go home. She was unable to provide another urine sample as she states she normally only urinates very small amounts. I believe this is reasonable as she has no urinary symptoms. Patient was given strict return precautions and told to follow-up with her PCP. She is already self isolating for Covid. - Vital Signs Vital signs: Temp Pulse Resp BP Pulse Ox 98.3 F 86 18 149/62 H 97 06/24/20 20:55 06/24/20 20:55 06/24/20 20:55 06/24/20 20:55 06/24/20 20:55 - Laboratory Result Diagrams: 06/24/20 12:03 06/24/20 12:03 Laboratory results interpreted by me: 06/24/20 06/24/20 06/24/20 12:03 12:03 12:03 RBC 5.49 H Hgb 16.6 H Hct 48.9 H Lymph % (Auto) 12.3 L Holt % (Auto) 15.4 H Absolute Monos (auto) 1.5 H Potassium 3.2 L Est GFR (MDRD) Non-Af 50 L Glucose 164 H Creatine Kinase NT-Pro-B Natriuret Pep 345 H 06/24/20 12:03 RBC Hgb Hct Lymph % (Auto) Holt % (Auto) Absolute Monos (auto) Potassium Est GFR (MDRD) Non-Af Glucose Creatine Kinase 28 L NT-Pro-B Natriuret Pep - Diagnostic Test Radiology reviewed: Image reviewed, Reports reviewed - EKG Interpretation by Me EKG shows normal: Sinus rhythm Rate: Normal Rhythm: NSR Additional EKG results interpreted by me: 06/25/20 14:34 Sinus rhythm at a rate of 76. No acute ST changes. QTc is normal. No previous EKG immediately available for comparison. Discharge - Discharge Clinical Impression: Hypokalemia, Dehydration, COVID-19 Fatigue Qualifiers: Fatigue type: unspecified Qualified Code(s): R53.83 - Other fatigue Condition: Stable Disposition: HOME, SELF-CARE Instructions: COVID-19 Guidance for Persons Under Investigation Additional Instructions: Your work-up today show dehydration. You received fluids. Please make sure you continue to drink fluids. Make sure you are eating light meals. Please return to the ER immediately for any shortness of breath, fever, any other concerning symptoms. Please follow-up with your family doctor. Referrals: EMILIANO RIVERA MD [Primary Care Provider] - Follow up as needed
[2020-06-24] MEDS ORDERED: POTASSIUM CHLORIDE 10 MEQ TABLET.ER PO ONE (20:42)
[2020-06-24 21:00] VITALS: BP 149/62
== END 2020-06-24 21:12 | disposition home or self-care (01) ==
LOC: ER 10:51
DX: U07.1 COVID-19 (principal); E87.6 Hypokalemia; R53.83 Other fatigue; E86.0 Dehydration; R53.1 Weakness; Z88.0 Allergy status to penicillin; Z88.3 Allergy status to other anti-infective agents; I25.2 Old myocardial infarction
CPT/HCPCS: 93005; 99285; 96360; 36415; 82550; 83735; 85025; 80053; 84484; 83880; 71045; 93010; J7030; J3490